=== PATIENT | male | born 1930 | race Hispanic/Latino ===

== ENCOUNTER 2017-03-26 14:31 | Inpatient (IN) | payer MEDICARE, OTHER ==
[2017-03-26 15:01] VITALS: BMI 30.7
--- NOTE | 2017-03-26 19:43 | CP.PCM.HP ---
History of Present Illness - History of Present Illness History of Present Illness: 87 y/o male with PMH Afib, HTN, Non Hodgkin Lymphoma, bilateral hearing impairment , LLE DVT was visiting from [place] to [place] where he suddenly fell down in the hotel room , developed slurred speech, RLE weakness and decreased sensation . Patient was admitted at an acute care hospital in [place] and was diagnosed with acute left MCA stroke and now transferred to acute rehab for physical therapy since his daughter lives in [place]. Patient feeling well , denies any CP SOB, urinary sx , abdopminal pain or changes in bowel movements. He has right facial droop, right side weakness and some slurred speech . 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[employer] ROS ; All other system review negative except above Code status ; Full Present on Admission - Present on Admission Any Indicators Present on Admission: Yes History of DVT/PE: Yes History of Uncontrolled Diabetes: No Urinary Catheter: No Decubitus Ulcer Present: No Review of Systems - Review of Systems All systems: reviewed and no additional remarkable complaints except Past Patient History - Infectious Disease Hx of Infectious Diseases: None - Tetanus Immunizations Tetanus Immunization: Unknown - Past Medical History & Family History Past Medical History?: Yes Past Family History: Reviewed and not pertinent - Past Social History Smoking Status: Never Smoked Chewing Tobacco Use: No Cigar Use: No Alcohol: Social Drugs: Denies Home Situation {Lives}: With Family Domestic Violence: Negative Meds Allergies/Adverse Reactions: Allergies Allergy/AdvReac Type Severity Reaction Status Date / Time latex Allergy Intermediate REDNESS Verified 03/26/17 19:13 Physical Exam - Constitutional Appears: Well, Non-toxic, No Acute Distress - Head Exam Head Exam: ATRAUMATIC, NORMAL INSPECTION, NORMOCEPHALIC - Eye Exam Eye Exam: EOMI, Normal appearance, PERRL Pupil Exam: NORMAL ACCOMODATION - ENT Exam ENT Exam: Mucous Membranes Moist, Normal Exam - Neck Exam Neck exam: Positive for: Full Rom, Normal Inspection - Respiratory Exam Respiratory Exam: Clear to Auscultation Bilateral, NORMAL BREATHING PATTERN. absent: Rales, Rhonchi, Wheezes - Cardiovascular Exam Cardiovascular Exam: Irregular Rhythm, +S1, +S2. absent: JVD - GI/Abdominal Exam GI & Abdominal Exam: Normal Bowel Sounds, Soft. absent: Distended, Guarding, Rebound, Tenderness - Rectal Exam Rectal Exam: Deferred - Extremities Exam Extremities exam: Positive for: normal capillary refill, normal inspection, pedal pulses present. Negative for: calf tenderness, pedal edema - Back Exam Back exam: NORMAL INSPECTION - Neurological Exam Neurological exam: Alert Additional comments: right facial droop right side weakness slurred speech - Psychiatric Exam Psychiatric exam: Normal Affect, Normal Mood - Skin Skin Exam: Dry, Intact, Normal Color, Warm Assessment & Plan - Assessment and Plan (Free Text) Assessment: 87 y/o male with PMH Afib, HTN, Non Hodgkin Lymphoma, bilateral hearing impairment , LLE DVT was visiting from [place] to [place] where he suddenly fell down in the hotel room , developed slurred speech, RLE weakness and decreased sensation . Patient was admitted at an acute care hospital in [place] and was diagnosed with acute left MCA stroke and now transferred to acute rehab for physical therapy since his daughter lives in [place]. Patient feeling well , denies any CP SOB, urinary sx , abdopminal pain or changes in bowel movements. He has right facial droop, right side weakness and some slurred speech . 1. Acute Left MCA stroke Admit patient to acute rehab for PT Physiatry consult with Dr. Carey PT/OT/ speech consult resume [facility] , Statin Consider d/c ASA due to increased risk for bleed ? Will call Neuro to consult about anticoagulation recommendations 2.Afib On atenolol and Flecainide Continue [facility] (Will discuss with neuro about dose reduction due to his age ) 3. History LLE DVT on eliquist 4. HTN Resume home meds, Atenolol, Lisinopril 5. Bilateral hearing impairment 6. BPH on Flomax 7. DVt prophylaxis on [facility]
[2017-03-27 07:12] LABS: BASO % 0.3 % (0.0-2.0); EOS # 0.2 K/uL (0.0-0.7); EOS % 2.8 % (0.0-4.0); HEMATOCRIT 39.9 % (35.0-51.0); LYMPH # 0.5 K/uL (1.0-4.3); LYMPH % 6.2 % (20.0-40.0); MEAN CELL VOLUME 87.4 fl (80.0-94.0); MEAN CORPUSCULAR HEMOGLOBIN 29.5 pg (27.0-31.0); MEAN CORPUSCULAR HGB CONC 33.7 g/dL (33.0-37.0); MEAN PLATELET VOLUME 8.1 fl (7.2-11.7); MONO # 0.9 K/uL (0.0-0.8); MONO % 12.4 % (0.0-10.0); NEUT # 5.7 K/uL (1.8-7.0); NEUT % 78.3 % (50.0-75.0); PLATELET COUNT 209 K/uL (130-400); RED CELL DISTRIBUTION WIDTH 14.2 % (11.5-14.5); WHITE BLOOD COUNT 7.3 K/uL (4.8-10.8)
[2017-03-27 07:18] LABS: ALKALINE PHOSPHATASE 52 U/L (38-126); ALT/SGPT 32 U/L (21-72); AST/SGOT 26 U/L (17-59); BILIRUBIN,TOTAL 1.1 mg/dl (0.2-1.3); BLOOD UREA NITROGEN 16 mg/dl (9-20); CALCIUM 8.7 mg/dL (8.4-10.2); CARBON DIOXIDE 29 mmol/L (22-30); CHLORIDE 103 mmol/L (98-107); GFR AFRICAN-AMERICAN > 60; GLUCOSE,RANDOM 103 mg/dL (75-110); POTASSIUM 4.7 MMOL/L (3.6-5.0); SODIUM 139 mmol/l (132-148); TOTAL PROTEIN 6.6 G/DL (6.3-8.2)
[2017-03-27] MEDS: Multivitamin With Minerals Tab PO SCH (08:59)
[2017-03-27] MEDS: Calcium-Vit D 500 mg-200 Units Tab UD PO SCH (08:59)
[2017-03-27] MEDS: Pantoprazole 40 mg EC Tab PO SCH (08:59)
[2017-03-27 10:57] LABS: EOSINOPHIL 3 % (0-7); LARGE PLATELETS PRESENT; NEUTROPHIL 80 % (42-75); TOTAL CELLS COUNTED 100
[2017-03-27 10:58] LABS: GIANT PLATELETS PRESENT
[2017-03-27] MEDS: FLECAINIDE 100 MG PO SCH ×2 (12:00→21:16)
--- NOTE | 2017-03-27 12:50 | CP.PCM.PN ---
Subjective - Date & Time of Evaluation Date of Evaluation: 03/27/17 Time of Evaluation: 10:30 - Subjective Subjective: Patient seen and examined. Sitting in chair in NAD. Feeling a little upset because can not take care of self and keeps spilling hi sfood.Hemodynamically stable, afebrile No acute issues overnight participated with PT Objective - Vital Signs/Intake and Output Vital Signs (last 24 hours): Temp Pulse Resp BP Pulse Ox 98.1 F 75 20 132/70 96 03/27/17 08:05 03/27/17 11:36 03/27/17 08:05 03/27/17 09:13 03/27/17 11:36 - Medications Medications: Current Medications Acetaminophen (Tylenol 325mg Tab) 650 mg PO Q6 PRN PRN Reason: Pain, moderate (4-7) Acetaminophen (Tylenol 325mg Tab) 650 mg PO Q4 PRN PRN Reason: Pain, severe (8-10) Last Admin: 03/26/17 22:10 Dose: 650 mg Apixaban (Eliquis) 5 mg PO BID [facility] PRN Reason: Protocol Last Admin: 03/27/17 08:59 Dose: 5 mg Aspirin (Aspirin Chewable) 81 mg PO DAILY [facility] Last Admin: 03/27/17 08:58 Dose: 81 mg Atenolol (Tenormin) 50 mg PO DAILY [facility] Last Admin: 03/27/17 09:13 Dose: 50 mg Atorvastatin Calcium (Lipitor) 80 mg PO HS [facility] Last Admin: 03/26/17 21:53 Dose: 80 mg Calcium/Vitamin D (Oyster Shell Calcium/Vitamin D 500 Mg-200 Iu) 1 tab PO DAILY [facility] Last Admin: 03/27/17 08:59 Dose: 1 tab Docusate Sodium (Colace) 100 mg PO BID [facility] Last Admin: 03/27/17 08:59 Dose: 100 mg Finasteride (Proscar) 5 mg PO DAILY [facility] Last Admin: 03/27/17 08:58 Dose: 5 mg Home Med (Flecainide [Tambocor]) 100 mg PO Q12 [facility] Lisinopril (Zestril) 10 mg PO DAILY [facility] Multivitamins/Minerals (Therapeutic-M Tab) 1 tab PO DAILY [facility] Last Admin: 03/27/17 08:59 Dose: 1 tab Pantoprazole Sodium (Protonix Ec Tab) 40 mg PO DAILY [facility] Last Admin: 03/27/17 08:59 Dose: 40 mg Tamsulosin HCl (Flomax) 0.8 mg PO HS [facility] Last Admin: 03/26/17 21:54 Dose: 0.8 mg - Labs Labs: 03/27/17 06:40 03/27/17 06:40 - Constitutional Appears: Non-toxic, No Acute Distress - Head Exam Head Exam: ATRAUMATIC, NORMAL INSPECTION, NORMOCEPHALIC - Eye Exam Eye Exam: EOMI, Normal appearance, PERRL Pupil Exam: NORMAL ACCOMODATION - ENT Exam ENT Exam: Mucous Membranes Moist, Normal Exam - Neck Exam Neck Exam: Full ROM, Normal Inspection - Respiratory Exam Respiratory Exam: Clear to Ausculation Bilateral, NORMAL BREATHING PATTERN. absent: Rales, Rhonchi, Wheezes - Cardiovascular Exam Cardiovascular Exam: Irregular Rhythm. absent: JVD - GI/Abdominal Exam GI & Abdominal Exam: Soft, Normal Bowel Sounds. absent: Distended, Guarding, Tenderness, Rebound - Rectal Exam Rectal Exam: Deferred - Extremities Exam Extremities Exam: Full ROM, Normal Capillary Refill, Normal Inspection. absent : Pedal Edema - Back Exam Back Exam: NORMAL INSPECTION - Neurological Exam Neurological Exam: Alert, Awake Additional comments: right facial droop expressive aphasia right side weakness - Psychiatric Exam Psychiatric exam: Flat Affect - Skin Skin Exam: Dry, Warm Assessment and Plan - Assessment and Plan (Free Text) Assessment: 87 y/o male with PMH Afib, HTN, Non Hodgkin Lymphoma, bilateral hearing impairment , LLE DVT was visiting from [place] to [place] where he suddenly fell down in the hotel room , developed slurred speech, RLE weakness and decreased sensation . Patient was admitted at an acute care hospital in [place] and was diagnosed with acute left MCA stroke and now transferred to acute rehab for physical therapy since his daughter lives in [place]. Patient feeling well , denies any CP SOB, urinary sx , abdopminal pain or changes in bowel movements. He has right facial droop, right side weakness and some slurred speech . 1. Acute Left MCA stroke Physiatry consult with Dr. Cherry niño PT/OT/ speech consult on eliquist , Statin Consider d/c ASA due to increased risk for bleed ? called Neuro to consult about anticoagulation recommendations 2.Afib On atenolol Flecainide not formulary in hospital Will ask family to bring in home med Continue Eliquist (Will discuss with neuro about dose reduction due to his age ) 3. History LLE DVT on eliquist 4. HTN Continue Atenolol, Lisinopril 5. Bilateral hearing impairment 6. BPH on Flomax 7. DVt prophylaxis on Eliquist
--- NOTE | 2017-03-27 15:07 | PCM.OPOC ---
Physiatry Overall Plan of Care - Overall Plan of Care Estimated Length of Stay in Weeks: 3 Rehab Impairment: Mobility, Gait, Cognition, Speech, Balance, Coordination Etiologic Diagnosis: Cerebrovascular Accident - Anticipated Interventions Physical Therapy:: Yes Occupational Therapy:: Yes Speech Therapy:: Yes Recreational Therapy:: Yes Other Anticipated Intervention:: Yes - Therapy Goals Bed Mobility: Independent Ambulation: Supervision Functional Positional Changes:: Independent - Discharge Plan Identification of Barriers to Discharge: Home Situation Discharge Destination: Home
--- NOTE | 2017-03-27 15:09 | CP.PCM.PN ---
Subjective - Date & Time of Evaluation Date of Evaluation: 03/27/17 Time of Evaluation: 13:30 - Subjective Subjective: no acute complaints at present Objective - Vital Signs/Intake and Output Vital Signs (last 24 hours): Temp Pulse Resp BP Pulse Ox 98.1 F 75 20 132/70 96 03/27/17 08:05 03/27/17 11:36 03/27/17 08:05 03/27/17 09:13 03/27/17 11:36 - Medications Medications: Current Medications Acetaminophen (Tylenol 325mg Tab) 650 mg PO Q6 PRN PRN Reason: Pain, moderate (4-7) Acetaminophen (Tylenol 325mg Tab) 650 mg PO Q4 PRN PRN Reason: Pain, severe (8-10) Last Admin: 03/26/17 22:10 Dose: 650 mg Apixaban (Eliquis) 5 mg PO BID [facility] PRN Reason: Protocol Last Admin: 03/27/17 08:59 Dose: 5 mg Aspirin (Aspirin Chewable) 81 mg PO DAILY [facility] Last Admin: 03/27/17 08:58 Dose: 81 mg Atenolol (Tenormin) 50 mg PO DAILY [facility] Last Admin: 03/27/17 09:13 Dose: 50 mg Atorvastatin Calcium (Lipitor) 80 mg PO HS [facility] Last Admin: 03/26/17 21:53 Dose: 80 mg Calcium/Vitamin D (Oyster Shell Calcium/Vitamin D 500 Mg-200 Iu) 1 tab PO DAILY [facility] Last Admin: 03/27/17 08:59 Dose: 1 tab Docusate Sodium (Colace) 100 mg PO BID [facility] Last Admin: 03/27/17 08:59 Dose: 100 mg Finasteride (Proscar) 5 mg PO DAILY [facility] Last Admin: 03/27/17 08:58 Dose: 5 mg Home Med (Flecainide [Tambocor]) 100 mg PO Q12 [facility] Lisinopril (Zestril) 10 mg PO DAILY [facility] Multivitamins/Minerals (Therapeutic-M Tab) 1 tab PO DAILY [facility] Last Admin: 03/27/17 08:59 Dose: 1 tab Pantoprazole Sodium (Protonix Ec Tab) 40 mg PO DAILY [facility] Last Admin: 03/27/17 08:59 Dose: 40 mg Tamsulosin HCl (Flomax) 0.8 mg PO HS [facility] Last Admin: 03/26/17 21:54 Dose: 0.8 mg - Labs Labs: 03/27/17 06:40 03/27/17 06:40 - Head Exam Head Exam: ATRAUMATIC, NORMAL INSPECTION, NORMOCEPHALIC - Eye Exam Eye Exam: EOMI, Normal appearance, PERRL Pupil Exam: NORMAL ACCOMODATION - ENT Exam ENT Exam: Mucous Membranes Moist, Normal Exam - Neck Exam Neck Exam: Normal Inspection - Respiratory Exam Respiratory Exam: NORMAL BREATHING PATTERN - Cardiovascular Exam Cardiovascular Exam: REGULAR RHYTHM - GI/Abdominal Exam GI & Abdominal Exam: Soft, Normal Bowel Sounds - Rectal Exam Rectal Exam: NORMAL INSPECTION - Exam External exam: NORMAL EXTERNAL EXAM - Extremities Exam Extremities Exam: Normal Capillary Refill, Normal Inspection - Back Exam Back Exam: NORMAL INSPECTION - Neurological Exam Neurological Exam: Alert, Awake Neuro motor strength exam: Left Upper Extremity: 3, Right Upper Extremity: 3, Left Lower Extremity: 3, Right Lower Extremity: 3 - Psychiatric Exam Psychiatric exam: Normal Affect, Normal Mood - Skin Skin Exam: Dry, Intact Assessment and Plan - Assessment and Plan (Free Text) Assessment: CVa, plan for PT, Ot rec and speech Video swallow, vital stim overall plan of care
--- NOTE | 2017-03-27 15:21 | CP.PCM.CON ---
History of Present Illness - History of Present Illness History of Present Illness: colleen is a87 year old male admitted for acute rehab status post fall in a hotel, probelm with slurred speech and right arm and right leg weakness Review of Systems - Neurological Neurological: Abnormal Gait, Confusion, Numbness, Focal Weakness, Lack of Coordination, Vertigo, Weakness Past Patient History - Infectious Disease Hx of Infectious Diseases: None - Tetanus Immunizations Tetanus Immunization: Unknown - Past Medical History & Family History Past Medical History?: Yes - Past Social History Smoking Status: Never Smoked - CARDIAC Hx Cardiac Disorders: Yes Hx Hypertension: Yes - PULMONARY Hx Respiratory Disorders: No - NEUROLOGICAL Hx Neurological Disorder: Yes HX Cerebrovascular Accident: Yes - HEENT Hx Deafness: Yes (with hearing aid to both ears) Other/Comment: wears glasses - RENAL Hx Chronic Kidney Disease: No - ENDOCRINE/METABOLIC Hx Endocrine Disorders: No - HEMATOLOGICAL/ONCOLOGICAL Hx Blood Disorders: No Hx AIDS: No Hx Human Immunodeficiency Virus (HIV): No - INTEGUMENTARY Hx Dermatological Problems: No - MUSCULOSKELETAL/RHEUMATOLOGICAL Hx Back Pain: Yes Hx Falls: Yes - GASTROINTESTINAL Hx Gastrointestinal Disorders: No - GENITOURINARY/GYNECOLOGICAL Hx Genitourinary Disorders: Yes Hx Prostate Problems: Yes (BPH) - PSYCHIATRIC Hx Psychophysiologic Disorder: No Hx Substance Use: No - SURGICAL HISTORY Hx Surgeries: Yes Hx Herniorrhaphy: Yes Hx Parathyroidectomy: Yes - ANESTHESIA Hx Anesthesia: Yes Hx Anesthesia Reactions: No Meds Allergies/Adverse Reactions: Allergies Allergy/AdvReac Type Severity Reaction Status Date / Time latex Allergy Intermediate REDNESS Verified 03/26/17 19:13 - Medications Medications: Current Medications Acetaminophen (Tylenol 325mg Tab) 650 mg PO Q6 PRN PRN Reason: Pain, moderate (4-7) Acetaminophen (Tylenol 325mg Tab) 650 mg PO Q4 PRN PRN Reason: Pain, severe (8-10) Last Admin: 03/26/17 22:10 Dose: 650 mg Apixaban (Eliquis) 5 mg PO BID [facility] PRN Reason: Protocol Last Admin: 03/27/17 08:59 Dose: 5 mg Aspirin (Aspirin Chewable) 81 mg PO DAILY [facility] Last Admin: 03/27/17 08:58 Dose: 81 mg Atenolol (Tenormin) 50 mg PO DAILY [facility] Last Admin: 03/27/17 09:13 Dose: 50 mg Atorvastatin Calcium (Lipitor) 80 mg PO HS [facility] Last Admin: 03/26/17 21:53 Dose: 80 mg Calcium/Vitamin D (Oyster Shell Calcium/Vitamin D 500 Mg-200 Iu) 1 tab PO DAILY [facility] Last Admin: 03/27/17 08:59 Dose: 1 tab Docusate Sodium (Colace) 100 mg PO BID [facility] Last Admin: 03/27/17 08:59 Dose: 100 mg Finasteride (Proscar) 5 mg PO DAILY [facility] Last Admin: 03/27/17 08:58 Dose: 5 mg Home Med (Flecainide [Tambocor]) 100 mg PO Q12 [facility] Lisinopril (Zestril) 10 mg PO DAILY [facility] Multivitamins/Minerals (Therapeutic-M Tab) 1 tab PO DAILY [facility] Last Admin: 03/27/17 08:59 Dose: 1 tab Pantoprazole Sodium (Protonix Ec Tab) 40 mg PO DAILY [facility] Last Admin: 03/27/17 08:59 Dose: 40 mg Tamsulosin HCl (Flomax) 0.8 mg PO [facility] Last Admin: 03/26/17 21:54 Dose: 0.8 mg Physical Exam - Head Exam Head Exam: ATRAUMATIC, NORMAL INSPECTION, NORMOCEPHALIC - Eye Exam Eye Exam: EOMI, Normal appearance, PERRL Pupil Exam: NORMAL ACCOMODATION, PERRL - ENT Exam ENT Exam: Mucous Membranes Moist, Normal Exam - Neck Exam Neck exam: Positive for: Normal Inspection - Respiratory Exam Respiratory Exam: NORMAL BREATHING PATTERN - Cardiovascular Exam Cardiovascular Exam: REGULAR RHYTHM - GI/Abdominal Exam GI & Abdominal Exam: Normal Bowel Sounds - Rectal Exam Rectal Exam: NORMAL INSPECTION - Exam External exam: NORMAL EXTERNAL EXAM - Extremities Exam Extremities exam: Positive for: normal inspection Additional comments: right arm, righ tleg weakness muscle strenght 3/5 and slurred speech - Back Exam Back exam: NORMAL INSPECTION - Neurological Exam Neurological exam: Alert - Psychiatric Exam Psychiatric exam: Normal Affect, Normal Mood - Skin Skin Exam: Dry, Intact, Normal Color Results - Vital Signs Recent Vital Signs: Last Vital Signs Temp 98.1 F 03/27/17 08:05 Pulse 75 03/27/17 11:36 Resp 20 03/27/17 08:05 BP 132/70 03/27/17 09:13 Pulse Ox 96 03/27/17 11:36 - Labs Result Diagrams: 03/27/17 06:40 03/27/17 06:40 Labs: Laboratory Results - last 24 hr 03/27/17 03/27/17 06:40 06:40 WBC 7.3 RBC 4.57 Hgb 13.5 Hct 39.9 MCV 87.4 MCH 29.5 MCHC 33.7 RDW 14.2 Plt Count 209 MPV 8.1 Neut % (Auto) 78.3 H Lymph % (Auto) 6.2 L [place] % (Auto) 12.4 H Eos % (Auto) 2.8 Baso % (Auto) 0.3 Neut # 5.7 Lymph # 0.5 L [place] # 0.9 H Eos # 0.2 Baso # 0.0 Neutrophils % (Manual) 80 H Band Neutrophils % 1 Lymphocytes % (Manual) 5 L Monocytes % (Manual) 11 H Eosinophils % (Manual) 3 Platelet Estimate Normal Large Platelets Present Giant Platelets Present Anisocytosis (manual) Slight Sodium 139 Potassium 4.7 Chloride 103 Carbon Dioxide 29 Anion Gap 12 BUN 16 Creatinine 0.9 Est GFR ( Amer) > 60 Est GFR (Non-Af Amer) > 60 Random Glucose 103 Calcium 8.7 Total Bilirubin 1.1 AST 26 ALT 32 Alkaline Phosphatase 52 Total Protein 6.6 Albumin 3.3 L Globulin 3.2 Albumin/Globulin Ratio 1.0 Assessment & Plan (1) CVA (cerebral vascular accident) Assessment and Plan: other problems of at fib, bph, nonhodgkins lymphoma covering for Physical, occupational, rec and speec therapy monitor skin and bowels bladder covering for Dr. Carey Status: Acute
--- NOTE | 2017-03-27 17:41 | CARD ---
APPROVED REPORT EKG Measurement Heart [id number] <Conclusion> Sinus rhythm with 1st degree AV block Left axis deviation Abnormal ECG
--- NOTE | 2017-03-27 18:49 | CP.PCM.CON ---
History of Present Illness - History of Present Illness History of Present Illness: CONSULT DICTATED RIGHT HEMIPARESIS AND RIGHT HOMONYMOUS HEMIANOPSIA ASA 81 MG AND ELIQUIS 5 MG BID PT AND KEEP BP WITH MAP +-90-100 NEED PSG AN OP FOR HIDDEN BECKY WRIST SPLINT Past Patient History - Infectious Disease Hx of Infectious Diseases: None - Tetanus Immunizations Tetanus Immunization: Unknown - Past Medical History & Family History Past Medical History?: Yes - Past Social History Smoking Status: Never Smoked - CARDIAC Hx Cardiac Disorders: Yes Hx Hypertension: Yes - PULMONARY Hx Respiratory Disorders: No - NEUROLOGICAL Hx Neurological Disorder: Yes HX Cerebrovascular Accident: Yes - HEENT Hx Deafness: Yes (with hearing aid to both ears) Other/Comment: wears glasses - RENAL Hx Chronic Kidney Disease: No - ENDOCRINE/METABOLIC Hx Endocrine Disorders: No - HEMATOLOGICAL/ONCOLOGICAL Hx Blood Disorders: No Hx AIDS: No Hx Human Immunodeficiency Virus (HIV): No - INTEGUMENTARY Hx Dermatological Problems: No - MUSCULOSKELETAL/RHEUMATOLOGICAL Hx Back Pain: Yes Hx Falls: Yes - GASTROINTESTINAL Hx Gastrointestinal Disorders: No - GENITOURINARY/GYNECOLOGICAL Hx Genitourinary Disorders: Yes Hx Prostate Problems: Yes (BPH) - PSYCHIATRIC Hx Psychophysiologic Disorder: No Hx Substance Use: No - SURGICAL HISTORY Hx Surgeries: Yes Hx Herniorrhaphy: Yes Hx Parathyroidectomy: Yes - ANESTHESIA Hx Anesthesia: Yes Hx Anesthesia Reactions: No Meds Allergies/Adverse Reactions: Allergies Allergy/AdvReac Type Severity Reaction Status Date / Time latex Allergy Intermediate REDNESS Verified 03/26/17 19:13 - Medications Medications: Current Medications Acetaminophen (Tylenol 325mg Tab) 650 mg PO Q6 PRN PRN Reason: Pain, moderate (4-7) Acetaminophen (Tylenol 325mg Tab) 650 mg PO Q4 PRN PRN Reason: Pain, severe (8-10) Last Admin: 03/26/17 22:10 Dose: 650 mg Apixaban (Eliquis) 5 mg PO BID [facility] PRN Reason: Protocol Last Admin: 03/27/17 17:55 Dose: 5 mg Aspirin (Aspirin Chewable) 81 mg PO DAILY [facility] Last Admin: 03/27/17 08:58 Dose: 81 mg Atenolol (Tenormin) 50 mg PO DAILY [facility] Last Admin: 03/27/17 09:13 Dose: 50 mg Atorvastatin Calcium (Lipitor) 80 mg PO HS [facility] Last Admin: 03/26/17 21:53 Dose: 80 mg Calcium/Vitamin D (Oyster Shell Calcium/Vitamin D 500 Mg-200 Iu) 1 tab PO DAILY [facility] Last Admin: 03/27/17 08:59 Dose: 1 tab Docusate Sodium (Colace) 100 mg PO BID [facility] Last Admin: 03/27/17 17:55 Dose: 100 mg Finasteride (Proscar) 5 mg PO DAILY [facility] Last Admin: 03/27/17 08:58 Dose: 5 mg Home Med (Flecainide [Tambocor]) 100 mg PO Q12 [facility] Last Admin: 03/27/17 12:00 Dose: 100 mg Lisinopril (Zestril) 10 mg PO DAILY [facility] Last Admin: 03/27/17 10:00 Dose: 10 mg Multivitamins/Minerals (Therapeutic-M Tab) 1 tab PO DAILY [facility] Last Admin: 03/27/17 08:59 Dose: 1 tab Pantoprazole Sodium (Protonix Ec Tab) 40 mg PO DAILY [facility] Last Admin: 03/27/17 08:59 Dose: 40 mg Tamsulosin HCl (Flomax) 0.8 mg PO [facility] Last Admin: 03/26/17 21:54 Dose: 0.8 mg Results - Vital Signs Recent Vital Signs: Last Vital Signs Temp 98.1 F 03/27/17 08:05 Pulse 75 03/27/17 11:36 Resp 20 03/27/17 08:05 BP 120/70 03/27/17 10:00 Pulse Ox 96 03/27/17 11:36 - Labs Result Diagrams: 03/27/17 06:40 03/27/17 06:40 Labs: Laboratory Results - last 24 hr 03/27/17 03/27/17 06:40 06:40 WBC 7.3 RBC 4.57 Hgb 13.5 Hct 39.9 MCV 87.4 MCH 29.5 MCHC 33.7 RDW 14.2 Plt Count 209 MPV 8.1 Neut % (Auto) 78.3 H Lymph % (Auto) 6.2 L [place] % (Auto) 12.4 H Eos % (Auto) 2.8 Baso % (Auto) 0.3 Neut # 5.7 Lymph # 0.5 L [place] # 0.9 H Eos # 0.2 Baso # 0.0 Neutrophils % (Manual) 80 H Band Neutrophils % 1 Lymphocytes % (Manual) 5 L Monocytes % (Manual) 11 H Eosinophils % (Manual) 3 Platelet Estimate Normal Large Platelets Present Giant Platelets Present Anisocytosis (manual) Slight Sodium 139 Potassium 4.7 Chloride 103 Carbon Dioxide 29 Anion Gap 12 BUN 16 Creatinine 0.9 Est GFR ( Amer) > 60 Est GFR (Non-Af Amer) > 60 Random Glucose 103 Calcium 8.7 Total Bilirubin 1.1 AST 26 ALT 32 Alkaline Phosphatase 52 Total Protein 6.6 Albumin 3.3 L Globulin 3.2 Albumin/Globulin Ratio 1.0
[2017-03-28] MEDS: Calcium-Vit D 500 mg-200 Units Tab UD PO SCH (08:34)
[2017-03-28] MEDS: Multivitamin With Minerals Tab PO SCH (08:34)
[2017-03-28] MEDS: FLECAINIDE 100 MG PO SCH ×3 (08:39→21:08)
[2017-03-28] MEDS: Pantoprazole 40 mg EC Tab PO SCH (08:41)
[2017-03-29] MEDS: Multivitamin With Minerals Tab PO SCH (09:03)
[2017-03-29] MEDS: FLECAINIDE 100 MG PO SCH ×2 (09:03→21:59)
[2017-03-29] MEDS: Calcium-Vit D 500 mg-200 Units Tab UD PO SCH (09:08)
[2017-03-29] MEDS: Pantoprazole 40 mg EC Tab PO SCH (09:09)
[2017-03-30] MEDS: Pantoprazole 40 mg EC Tab PO SCH (08:30)
[2017-03-30] MEDS: Multivitamin With Minerals Tab PO SCH (08:30)
[2017-03-30] MEDS: Calcium-Vit D 500 mg-200 Units Tab UD PO SCH (08:31)
[2017-03-30] MEDS: FLECAINIDE 100 MG PO SCH ×2 (08:32→21:16)
--- NOTE | 2017-03-30 08:39 | PN ---
DATE: PHYSIATRY PROGRESS NOTE SUBJECTIVE: The patient is alert, able to follow commands. The patient with left-sided weakness, admitted for acute inpatient rehab program. PHYSICAL EXAMINATION: VITAL SIGNS: Stable. NECK: Supple. CHEST: Symmetrical. HEART: Sounds S1 and S2. ABDOMEN: Areas benign. EXTREMITIES: No clubbing, cyanosis, or edema. IMPRESSION: Left-sided weakness secondary to cerebrovascular accident, history of non-Hodgkin's lymphoma, deep venous thrombosis, benign prostatic hypertrophy, atrial fibrillation, hypertension. Patient with physical, occupational, recreational and speech therapy program. Monitor the consistency of the food for video swallowing test. Continue acute rehab. Davis MD Lenore
--- NOTE | 2017-03-30 08:44 | CON ---
DATE: UNIT NUMBER: [id number] REASON FOR THE CONSULTATION: Post stroke. CHIEF COMPLAINT: The patient was brought in to the long-term care facility following the stroke that he had in [place]. From neurological point of view, I was called in to evaluate him for further management. HISTORY OF PRESENT ILLNESS: The patient is an 87-year-old right-handed male, in the usual state of health while he was in [facility], suddenly he fell on his right side, hit his head. During the workup, found to have right-sided stroke with left MCA stroke. Patient is known to have atrial fibrillation and medication is being adjusted, and had workup and being transferred to here for acute rehabilitation. At present, he denies headache, no visual or bulbar dysfunction. Complaining of lower back pain, mild weakness on his right side. He tends to get out of the bed and walk by himself. No history of loss of consciousness. No history of involuntary movements. PAST MEDICAL HISTORY: Atrial fibrillation, status post cardioversion, hypertension, non-Hodgkin lymphoma; bilateral hearing impairment, on a hearing aid; left lower extremity DVT. MEDICATIONS: Eliquis, atorvastatin, lisinopril, tamsulosin, aspirin, atenolol, finasteride, folic acid, multivitamin, calcium and vitamin D. PAST SURGICAL HISTORY: Post parathyroidectomy and hernia repair. PERSONAL HISTORY: Denies smoking. Lives with his , and social alcohol use. ALLERGIES: LATEX. REVIEW OF SYSTEMS: A 12-point system is being reviewed. From neuro, right-sided weakness. PHYSICAL EXAMINATION: VITAL SIGNS: Blood pressure 125/55, mean arterial pressure of 86, respiratory rate is 16, temperature afebrile. NECK: Supple. No carotid bruit. HEART: NSR. CHEST: Fair air entry. EXTREMITIES: No edema in legs. Right arm wrist drop with mild right leg externally rotated. NEUROLOGICAL: Cranial nerve examination: Visual field, right homonymous hemianopsia. Extraocular movement normal. Pupils reactive to light. No nystagmus. Flattening of the right nasolabial fold. Hearing seems to be affected on both sides. Tongue is midline. Good gag. Motor examination: Outstretched hands with eyes closed, mild weakness on the right side, 4/5, with a wrist drop. Right leg also seems to be affected with the weakness of 5-/5. Sensory examination: No cortical sensory loss. Responded to pain symmetrically on both sides. Coordination: Snhakx-[id number]-[id number] test, dysmetria proportionate to his weakness. Deep tendon reflexes absent. Plantars are upgoing on his right side, left side was downgoing. Gait is deferred at this time. DIAGNOSTIC DATA: MRI of the brain, which was done at previous hospital, showed left MCA infarct. CONCLUSION: The patient has been presenting with left embolic middle cerebral artery stroke, presenting with right homonymous hemianopsia, right upper motor neuron facial nerve dysfunction with right hemiparesis. RECOMMENDATIONS: 1. Continue low-dose aspirin with Eliquis. 2. Wrist splint. 3. Physical therapy as he has been getting. 4. Continue DVT prophylaxis. 5. Keep the blood pressure, mean arterial pressure around 90 to 100. 6. No other workup is needed from neurological point of view. Tylor Kenney MD MTDD
--- NOTE | 2017-03-30 12:57 | CP.PCM.PN ---
Subjective - Date & Time of Evaluation Date of Evaluation: 03/30/17 Time of Evaluation: 11:00 - Subjective Subjective: Patient was seen and examined at bedside. Continues to have right sided hemiparesis and right sided homonymous hemianopsia. Has no complaints today. Resting in bed. Cooperating well with ST/OT/PT. No acute events as per nursing staff. Objective - Vital Signs/Intake and Output Vital Signs (last 24 hours): Temp Pulse Resp BP Pulse Ox 97.9 F 61 20 155/64 H 98 03/30/17 07:44 03/30/17 08:34 03/30/17 07:44 03/30/17 08:34 03/30/17 07:44 - Medications Medications: Current Medications Acetaminophen (Tylenol 325mg Tab) 650 mg PO Q6 PRN PRN Reason: Pain, moderate (4-7) Last Admin: 03/29/17 09:13 Dose: 650 mg Acetaminophen (Tylenol 325mg Tab) 650 mg PO Q4 PRN PRN Reason: Pain, severe (8-10) Last Admin: 03/26/17 22:10 Dose: 650 mg Apixaban (Eliquis) 5 mg PO BID [facility] PRN Reason: Protocol Last Admin: 03/30/17 08:32 Dose: 5 mg Aspirin (Aspirin Chewable) 81 mg PO DAILY [facility] Last Admin: 03/30/17 08:32 Dose: 81 mg Atenolol (Tenormin) 50 mg PO DAILY [facility] Last Admin: 03/30/17 08:34 Dose: 50 mg Atorvastatin Calcium (Lipitor) 80 mg PO HS [facility] Last Admin: 03/29/17 22:00 Dose: 80 mg Calcium/Vitamin D (Oyster Shell Calcium/Vitamin D 500 Mg-200 Iu) 1 tab PO DAILY [facility] Last Admin: 03/30/17 08:31 Dose: 1 tab Docusate Sodium (Colace) 100 mg PO BID [facility] Last Admin: 03/30/17 08:31 Dose: 100 mg Finasteride (Proscar) 5 mg PO DAILY [facility] Last Admin: 03/30/17 08:30 Dose: 5 mg Home Med (Flecainide [Tambocor]) 100 mg PO Q12 [facility] Last Admin: 03/30/17 08:32 Dose: 100 mg Lisinopril (Zestril) 10 mg PO DAILY [facility] Last Admin: 03/30/17 08:31 Dose: 10 mg Multivitamins/Minerals (Therapeutic-M Tab) 1 tab PO DAILY [facility] Last Admin: 03/30/17 08:30 Dose: 1 tab Pantoprazole Sodium (Protonix Ec Tab) 40 mg PO DAILY [facility] Last Admin: 03/30/17 08:30 Dose: 40 mg Tamsulosin HCl (Flomax) 0.8 mg PO HS [facility] Last Admin: 03/29/17 21:59 Dose: 0.8 mg - Labs Labs: 03/27/17 06:40 03/27/17 06:40 - Additional Findings Additional findings: Physical exam: Constitutional- cooperative, awake, alert. Head- NCAT, PERRL Eye- PERRL, normal accommodation ENT- normal exam, MMM. Neck- normal inspection, supple, no JVD Respiratory- CTAB, no wheezes rales rhonchi Cardiovascular- RRR, +S1, +S2 no MRG GI/Abdominal- normal bowel sounds, soft, no mass, no hsm Skin- warm, dry Extremities Exam- normal capillary refill, normal inspection Neurological Exam- Right sided hemiparesis. Right sided homonymous hemianopsia. Alert, coherent Psych- normal mood, normal affect Assessment and Plan - Assessment and Plan (Free Text) Plan: Assessment: 87 y/o male with PMH Afib, HTN, Non Hodgkin Lymphoma, bilateral hearing impairment , LLE DVT was visiting from [place] to [place] where he suddenly fell down in the hotel room , developed slurred speech, RLE weakness and decreased sensation . Patient was admitted at an acute care hospital in [place] and was diagnosed with acute left MCA stroke and now transferred to acute rehab for physical therapy since his daughter lives in [place]. Patient feeling well , denies any CP SOB, urinary sx , abdopminal pain or changes in bowel movements. He has right facial droop, right side weakness and some slurred speech . 1. Acute Left MCA stroke Physiatry consult with Dr. Cherry niño PT/OT/ speech consult Continue Eliquis, Statin Continue ASA 81 mg po daily as per neurology Patient to need outpatient polysomnogram as an outpatient for possible BECKY Wrist splint 2. Atrial fibrillation, controlled Atenolol 50 mg po daily Flecainide 100 mg po q 12 hours Continue Eliquis 3. History LLE DVT on eliquis 4. HTN Continue Atenolol, Lisinopril 5. Bilateral hearing impairment 6. BPH on Flomax 7. DVt prophylaxis on Eliquis 8. GERD - Protonix 40 mg po daily
[2017-03-30] MEDS ORDERED: Barium Sulfate Susp 0.1% w/v, 0.1% w/w 450 mL Bottle PO ONE (13:09)
--- NOTE | 2017-03-30 14:37 | CP.PCM.PN ---
Subjective - Date & Time of Evaluation Date of Evaluation: 03/30/17 Time of Evaluation: 12:00 - Subjective Subjective: no acute complaints of any pain Objective - Vital Signs/Intake and Output Vital Signs (last 24 hours): Temp Pulse Resp BP Pulse Ox 97.9 F 61 20 155/64 H 98 03/30/17 07:44 03/30/17 08:34 03/30/17 07:44 03/30/17 08:34 03/30/17 07:44 - Medications Medications: Current Medications Acetaminophen (Tylenol 325mg Tab) 650 mg PO Q6 PRN PRN Reason: Pain, moderate (4-7) Last Admin: 03/29/17 09:13 Dose: 650 mg Acetaminophen (Tylenol 325mg Tab) 650 mg PO Q4 PRN PRN Reason: Pain, severe (8-10) Last Admin: 03/26/17 22:10 Dose: 650 mg Apixaban (Eliquis) 5 mg PO BID [facility] PRN Reason: Protocol Last Admin: 03/30/17 08:32 Dose: 5 mg Aspirin (Aspirin Chewable) 81 mg PO DAILY [facility] Last Admin: 03/30/17 08:32 Dose: 81 mg Atenolol (Tenormin) 50 mg PO DAILY [facility] Last Admin: 03/30/17 08:34 Dose: 50 mg Atorvastatin Calcium (Lipitor) 80 mg PO HS [facility] Last Admin: 03/29/17 22:00 Dose: 80 mg Calcium/Vitamin D (Oyster Shell Calcium/Vitamin D 500 Mg-200 Iu) 1 tab PO DAILY [facility] Last Admin: 03/30/17 08:31 Dose: 1 tab Docusate Sodium (Colace) 100 mg PO BID [facility] Last Admin: 03/30/17 08:31 Dose: 100 mg Finasteride (Proscar) 5 mg PO DAILY [facility] Last Admin: 03/30/17 08:30 Dose: 5 mg Home Med (Flecainide [Tambocor]) 100 mg PO Q12 [facility] Last Admin: 03/30/17 08:32 Dose: 100 mg Lisinopril (Zestril) 10 mg PO DAILY [facility] Last Admin: 03/30/17 08:31 Dose: 10 mg Multivitamins/Minerals (Therapeutic-M Tab) 1 tab PO DAILY [facility] Last Admin: 03/30/17 08:30 Dose: 1 tab Pantoprazole Sodium (Protonix Ec Tab) 40 mg PO DAILY [facility] Last Admin: 03/30/17 08:30 Dose: 40 mg Tamsulosin HCl (Flomax) 0.8 mg PO HS [facility] Last Admin: 03/29/17 21:59 Dose: 0.8 mg - Labs Labs: 03/27/17 06:40 03/27/17 06:40 - Head Exam Head Exam: ATRAUMATIC, NORMAL INSPECTION, NORMOCEPHALIC - Eye Exam Eye Exam: EOMI, Normal appearance, PERRL Pupil Exam: NORMAL ACCOMODATION - ENT Exam ENT Exam: Mucous Membranes Moist, Normal Exam - Neck Exam Neck Exam: Normal Inspection - Respiratory Exam Respiratory Exam: NORMAL BREATHING PATTERN - Cardiovascular Exam Cardiovascular Exam: REGULAR RHYTHM - GI/Abdominal Exam GI & Abdominal Exam: Normal Bowel Sounds - Rectal Exam Rectal Exam: NORMAL INSPECTION - Exam External exam: NORMAL EXTERNAL EXAM - Extremities Exam Extremities Exam: Full ROM, Normal Capillary Refill, Normal Inspection - Back Exam Back Exam: NORMAL INSPECTION - Neurological Exam Neurological Exam: Alert, Awake Neuro motor strength exam: Left Upper Extremity: 3, Right Upper Extremity: 3, Left Lower Extremity: 3, Right Lower Extremity: 3 - Psychiatric Exam Psychiatric exam: Normal Affect, Normal Mood - Skin Skin Exam: Dry, Intact Assessment and Plan (1) CVA (cerebral vascular accident) Assessment & Plan: Pt, ot, rec therapy, covering for DR. Carey for team conference Status: Acute
--- NOTE | 2017-03-30 16:25 | RAD ---
PROCEDURE: Modified barium swallow study. HISTORY: COMPARISON: None available. TECHNIQUE: Under fluoroscopic guidance, barium meals of various consistency were administered to the patient by the speech pathologist. FINDINGS: Penetration without aspiration was observed during this study.This was observed primarily with thin liquids with and without chin tuck maneuver. IMPRESSION: Evidence of Penetration without aspiration observed. Please refer to the detailed report and recommendations of the speech pathologist.
[2017-03-31] MEDS: FLECAINIDE 100 MG PO SCH ×2 (08:58→21:56)
[2017-03-31] MEDS: Calcium-Vit D 500 mg-200 Units Tab UD PO SCH (08:59)
[2017-03-31] MEDS: Pantoprazole 40 mg EC Tab PO SCH (08:59)
[2017-03-31] MEDS: Multivitamin With Minerals Tab PO SCH (09:00)
[2017-04-01] MEDS: FLECAINIDE 100 MG PO SCH ×2 (08:26→21:37)
[2017-04-01] MEDS: Calcium-Vit D 500 mg-200 Units Tab UD PO SCH (08:27)
[2017-04-01] MEDS: Multivitamin With Minerals Tab PO SCH (08:27)
[2017-04-01] MEDS: Pantoprazole 40 mg EC Tab PO SCH (08:29)
--- NOTE | 2017-04-01 08:52 | PSY.TMCNF ---
Nursing - Vital Signs Vital Signs (Last 8 hours): Vital Signs 04/01/17 04/01/17 08:28 08:45 Temperature 97.7 F Pulse Rate 58 L 58 L Respiratory 22 Rate Blood Pressure 134/53 L 134/53 L O2 Sat by Pulse 99 Oximetry Pain: 0 - Medications/Other Issues Comment: Pt at moderate nutritional risk. goal: 1. Pt to consume 75-100% of meals. Follow-up due on 04/03/2017 - Bladder Management Bladder Pattern: Normal, Incontinent Voiding Method: Toilet, Urinal - Bowel Management Bowel Pattern: Normal - Goals/Time Frame Comments: Pt was seen following OT session and brought into the recreation room. Pt agreeable to visit. Pt reported that he would like to be called "Ed" throughout his stay. Pt was able to identify his leisure interests such as watching television, reading, and enjoys writing. 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 Pt reported that he lives in [place] with and traveled to [place] to visit the [employer] and then travel to daughters home in [place] for [facility]. Pt reported that his son and are currently staying in [place] at daughter's home until pt is medically stable to travel back to [place]. Pt presented with slurred speech and is hard of hearing although has B/L hearing aides. Pt would benefit from recreation therapy throughout stay on unit. Physical Therapy - Bed Mobility Bed Mobility: Verbal Cues, Minimal Assistance - Transfers Wheelchair to Mat: Verbal Cues, Minimal Assistance Sit to Stand: Verbal Cues, Minimal Assistance - Ambulation Level of Assistance: Verbal Cues, Minimal Assistance Distance (ft.): 75 Assistive Devices: Rolling Walker - Stair Negotiation Stairs: Level of Assistance: Minimal Assistance Number of Stairs: 3 Handrails: Bilateral Stairs: Assistive Devices: Left Handrail, Right Handrail - Standing Balance Static Stand: Contact Guard Assist Dynamic Stand: Minimal Assistance, Moderate Assistance - Pain Comment: Intermittent complaints of neck and back pain, pt reports these are chronic issues - Insight/Carryover Insight/Carryover: Fair - Patient/Family Education Comment: Role of OT and rehab, CVA and recovery, compensatory strategies for ADLs and ADL transfers, fall prevention. Pt requires continued reinforcement of education to ensure carryover. - Assessment/Plan Assessment: Pt is an 87 year old male s/p CVA. Pt would benefit from inpatient rehab services to address coordination, R sided inattention, ROM, strength, safety awareness, balance and posture to maximize safety and independence with ADLs and functional transfers. - Goals Timeframe: 3 weeks Goals: MOD I grooming. MOD I feeding. S with UE dressing. S LE dressing. S toileting. S toilet txfer. S bathing. S tub txfer - Provider License Number: [id number] Occupational Therapy - Arousal/Attention/Orientation Level of Consciousness: Awake, Alert, Forgetful Patient Orientation: Person, Place - ADL/IADL Self Feeding: Supervision, Verbal Cues, Set-up Help, Minimal Assistance Grooming: Verbal Cues, Set-up Help, Minimal Assistance Dressing-Upper Extremity: Maximum Assistance Dressing-Lower Extremity: Dependent - Sitting Balance Static Sitting: Contact Guard Assist Dynamic Sitting: Moderate Assistance - Transfers Wheelchair to Bed Transfers: Verbal Cues, Set-up Help, Minimal Assistance Toilet Transfers: Verbal Cues, Set-up Help, Moderate Assistance - Wheelchair Management Level of Assistance: Dependent - Upper Extremity Status Right Upper Extremity Comment: ROM WFL with exception to digits, 3+/5, impaired fine motor coordination Left Upper Extremity Comment: ROM WFL, MMT grossly 4+/5 - Pain Comment: Intermittent complaints of neck and back pain, pt reports these are chronic issues - Insight/Carryover Insight/Carryover: Fair - Patient/Family Education Comment: Role of OT and rehab, CVA and recovery, compensatory strategies for ADLs and ADL transfers, fall prevention. Pt requires continued reinforcement of education to ensure carryover. - Assessment/Plan Assessment: Pt is an 87 year old male s/p CVA. Pt would benefit from inpatient rehab services to address coordination, R sided inattention, ROM, strength, safety awareness, balance and posture to maximize safety and independence with ADLs and functional transfers. - Goals Timeframe: 3 weeks Goals: MOD I grooming. MOD I feeding. S with UE dressing. S LE dressing. S toileting. S toilet txfer. S bathing. S tub txfer - Provider Therapist: Cherelle Johnson License Number: [id number] Speech Therapy - Consult Information Patient on Program: Yes Medical Diagnosis: CVA Treatment Diagnosis: - moderate dysarthria. - mild cognitive deficits. - moderate oropharyngeal dysphagia - Assessment Memory Impairment: Mild Speech/Articulation Impairment: Moderate Dysphagia/Swallowing Impairment: Moderate Comment: finely chopped/nectar - Plan Assessment: Pt is an 87 year old male s/p CVA. Pt would benefit from inpatient rehab services to address coordination, R sided inattention, ROM, strength, safety awareness, balance and posture to maximize safety and independence with ADLs and functional transfers. - Provider Therapist: Teresa Grace License Number: [id number] Recreational Therapy - Participation Participation: Participates in Individual and/or Group Sessions - Attendance Attendance: Daily - Activities Leisure Activities: Socializing - Socialization Level of Socialization: Initiates/interacts freely with care givers and peer - Diversional Time Diversional Time: reading the newspaper, socializing - Assessment Assessment/Plan: Pt is an 87 year old male s/p CVA. Pt would benefit from inpatient rehab services to address coordination, R sided inattention, ROM, strength, safety awareness, balance and posture to maximize safety and independence with ADLs and functional transfers. - Provider Therapist: Ana Chong, PROFESSOR OF FAMILY MEDICINE #[id number] Nutrition - Current Diet Current Diet/ Supplement/ Feedings: Heart healthy diet mech altered(finely chopped) nectar thick liquids - Appetite Percent Meal Consumed: 50-74% - Assessment/Goals/Time Frame Assessment/Goals/Time Frame: Pt at moderate nutritional risk. goal: 1. Pt to consume 75-100% of meals. Follow-up due on 04/03/2017 - Provider Provider: Zabrina Head RD Case Management - Discharge Plan Discharge Plan: Home with significant other/family Rehabilitation Plan - Treatment Plan Treatment Plan: Physical Therapy, Occupational Therapy, Speech, Dietary, Patient /Family Education - Recommendation Recommendation: Physical Therapy, Occupational Therapy, Speech, Dietary, Patient /Family Education - Discharge Plan Discharge to: Home
[2017-04-01 10:41] LABS: RBC URINE 122 /hpf (0-3); URINE BILIRUBIN NEGATIVE (NEGATIVE); URINE BLOOD MODERATE (NEGATIVE); URINE COLOR YELLOW (YELLOW); URINE GLUCOSE (UA) NEG (Normal); URINE KETONE NEGATIVE (NEGATIVE); URINE LEUKOCYTE ESTERASE NEG Leu/uL (Negative); URINE PROTEIN NEGATIVE (NEGATIVE); URINE UROBILINOGEN 0.2-1.0 mg/dL (0.2-1.0); WBC URINE 5 /hpf (0-5)
--- NOTE | 2017-04-01 11:49 | PN ---
PHYSIATRY PROGRESS NOTE DATE: SUBJECTIVE: The patient is doing fine. No acute complaints at present. PHYSICAL EXAMINATION: VITAL SIGNS: Vitals are stable. NECK: Supple. CHEST: Symmetrical. HEART: Sounds S1 and S2. ABDOMEN: Abdominal area is benign. EXTREMITIES: No clubbing, cyanosis or edema. IMPRESSION: Acute cerebrovascular accident with non-Hodgkin's, deep venous thrombosis, benign prostatic hypertrophy. Status post team conference, status post discussion with the family member, regarding discharge planning. No date at present to consider vital stimulation by speech. Davis MD Lenore
--- NOTE | 2017-04-01 12:10 | CP.PCM.PN ---
Subjective - Date & Time of Evaluation Date of Evaluation: 04/01/17 Time of Evaluation: 14:30 - Subjective Subjective: Patient seen bedside. Lying in bed comfortably . Denies any pain or discomfort. Participating with PT . Hemodynamically stable, afebrile.No acute issues overnight. Objective - Vital Signs/Intake and Output Vital Signs (last 24 hours): Temp Pulse Resp BP Pulse Ox 97.7 F 58 L 22 134/53 L 99 04/01/17 08:45 04/01/17 08:45 04/01/17 08:45 04/01/17 08:45 04/01/17 08:45 - Medications Medications: Current Medications Acetaminophen (Tylenol 325mg Tab) 650 mg PO Q6 PRN PRN Reason: Pain, moderate (4-7) Last Admin: 03/31/17 17:33 Dose: 650 mg Acetaminophen (Tylenol 325mg Tab) 650 mg PO Q4 PRN PRN Reason: Pain, severe (8-10) Last Admin: 03/26/17 22:10 Dose: 650 mg Apixaban (Eliquis) 5 mg PO BID [facility] PRN Reason: Protocol Last Admin: 04/01/17 08:27 Dose: 5 mg Aspirin (Aspirin Chewable) 81 mg PO DAILY [facility] Last Admin: 04/01/17 08:28 Dose: 81 mg Atenolol (Tenormin) 50 mg PO DAILY [facility] Last Admin: 03/31/17 09:00 Dose: 50 mg Atorvastatin Calcium (Lipitor) 80 mg PO HS [facility] Last Admin: 03/31/17 21:54 Dose: 80 mg Calcium/Vitamin D (Oyster Shell Calcium/Vitamin D 500 Mg-200 Iu) 1 tab PO DAILY [facility] Last Admin: 04/01/17 08:27 Dose: 1 tab Docusate Sodium (Colace) 100 mg PO BID [facility] Last Admin: 04/01/17 08:27 Dose: 100 mg Finasteride (Proscar) 5 mg PO DAILY [facility] Last Admin: 04/01/17 08:28 Dose: 5 mg Home Med (Flecainide [Tambocor]) 100 mg PO Q12 [facility] Last Admin: 04/01/17 08:26 Dose: 100 mg Lactulose (Enulose) 20 gm PO BID PRN PRN Reason: Constipation Lisinopril (Zestril) 10 mg PO DAILY [facility] Last Admin: 04/01/17 08:28 Dose: 10 mg Multivitamins/Minerals (Therapeutic-M Tab) 1 tab PO DAILY [facility] Last Admin: 04/01/17 08:27 Dose: 1 tab Pantoprazole Sodium (Protonix Ec Tab) 40 mg PO DAILY [facility] Last Admin: 04/01/17 08:29 Dose: 40 mg Tamsulosin HCl (Flomax) 0.8 mg PO HS [facility] Last Admin: 03/31/17 21:55 Dose: 0.8 mg - Labs Labs: 03/27/17 06:40 03/27/17 06:40 - Constitutional Appears: Non-toxic, No Acute Distress - Head Exam Head Exam: ATRAUMATIC, NORMOCEPHALIC Additional comments: right facial droop - Eye Exam Eye Exam: EOMI, PERRL Pupil Exam: NORMAL ACCOMODATION - ENT Exam ENT Exam: Mucous Membranes Moist, Normal Exam - Neck Exam Neck Exam: Full ROM, Normal Inspection - Respiratory Exam Respiratory Exam: Clear to Ausculation Bilateral, NORMAL BREATHING PATTERN. absent: Rales, Rhonchi, Wheezes - Cardiovascular Exam Cardiovascular Exam: Irregular Rhythm, +S1, +S2. absent: JVD - GI/Abdominal Exam GI & Abdominal Exam: Soft, Normal Bowel Sounds. absent: Distended, Guarding, Tenderness, Rebound - Rectal Exam Rectal Exam: Deferred - Extremities Exam Extremities Exam: Full ROM, Normal Capillary Refill, Normal Inspection. absent : Calf Tenderness, Pedal Edema - Back Exam Back Exam: NORMAL INSPECTION - Neurological Exam Neurological Exam: Alert, Awake, Oriented x3 Additional comments: right facial droop slurred speech - Psychiatric Exam Psychiatric exam: Normal Affect - Skin Skin Exam: Dry, Intact, Normal Color, Warm Assessment and Plan - Assessment and Plan (Free Text) Assessment: 87 y/o male with PMH Afib, HTN, Non Hodgkin Lymphoma, bilateral hearing impairment , LLE DVT was visiting from [place] to [place] where he suddenly fell down in the hotel room , developed slurred speech, RLE weakness and decreased sensation . Patient was admitted at an acute care hospital in [place] and was diagnosed with acute left MCA stroke and now transferred to acute rehab for physical therapy since his daughter lives in [place]. He has right facial droop, right side weakness and some slurred speech . 1. Acute Left MCA stroke Physiatry consult with Dr. Carey appreciated continue PT/OT/ speech consult on Eliquis, Statin , ASA neurology input appreciated Patient to need outpatient polysomnogram as an outpatient for possible BECKY Wrist splint 2. Atrial fibrillation, controlled Atenolol 50 mg po daily Flecainide 100 mg po q 12 hours Continue Eliquis 3. History LLE DVT on eliquis 4. HTN Continue Atenolol, Lisinopril 5. Bilateral hearing impairment 6. BPH on Flomax 7. DVt prophylaxis on Eliquis 8. GERD Protonix 40 mg po daily
[2017-04-02] MEDS: Pantoprazole 40 mg EC Tab PO SCH (08:29)
[2017-04-02] MEDS: Multivitamin With Minerals Tab PO SCH (08:29)
[2017-04-02] MEDS: Calcium-Vit D 500 mg-200 Units Tab UD PO SCH (08:30)
[2017-04-02] MEDS: FLECAINIDE 100 MG PO SCH ×2 (08:31→21:25)
[2017-04-03] MEDS: FLECAINIDE 100 MG PO SCH ×2 (08:15→21:05)
[2017-04-03] MEDS: Calcium-Vit D 500 mg-200 Units Tab UD PO SCH (08:15)
[2017-04-03] MEDS: Pantoprazole 40 mg EC Tab PO SCH (08:15)
[2017-04-03] MEDS: Multivitamin With Minerals Tab PO SCH (08:16)
--- NOTE | 2017-04-03 10:41 | CP.PCM.PN ---
Subjective - Date & Time of Evaluation Date of Evaluation: 04/03/17 Time of Evaluation: 10:38 - Subjective Subjective: patient seen and examined at bedside status post acute CVA. he is participating with physical therapy well, and states he feels he is improving. He denies chest pain, shortness of breath, or any new focal neuro deficits. Patient is hemodynamically stable and in no acute distress. Objective - Vital Signs/Intake and Output Vital Signs (last 24 hours): Temp Pulse Resp BP Pulse Ox 98.1 F 66 18 120/70 96 04/03/17 08:14 04/03/17 08:16 04/03/17 08:14 04/03/17 08:16 04/03/17 08:14 Physical exam: Constitutional- cooperative, awake, alert. Head- NCAT, PERRL Eye- PERRL, normal accommodation ENT- normal exam, MMM. Neck- normal inspection, supple, no JVD Respiratory- CTAB, no wheezes rales rhonchi Cardiovascular- RRR, +S1, +S2 no MRG GI/Abdominal- normal bowel sounds, soft, no mass, no hsm Skin- warm, dry Extremities Exam- normal capillary refill, normal inspection Neurological Exam- alert, awake Psych- normal mood, normal affect - Medications Medications: Current Medications Acetaminophen (Tylenol 325mg Tab) 650 mg PO Q6 PRN PRN Reason: Pain, moderate (4-7) Last Admin: 03/31/17 17:33 Dose: 650 mg Acetaminophen (Tylenol 325mg Tab) 650 mg PO Q4 PRN PRN Reason: Pain, severe (8-10) Last Admin: 04/02/17 08:17 Dose: 650 mg Apixaban (Eliquis) 5 mg PO BID [facility] PRN Reason: Protocol Last Admin: 04/03/17 08:15 Dose: 5 mg Aspirin (Aspirin Chewable) 81 mg PO DAILY [facility] Last Admin: 04/03/17 08:15 Dose: 81 mg Atenolol (Tenormin) 50 mg PO DAILY [facility] Last Admin: 04/03/17 08:16 Dose: 50 mg Atorvastatin Calcium (Lipitor) 80 mg PO HS [facility] Last Admin: 04/02/17 21:26 Dose: 80 mg Calcium/Vitamin D (Oyster Shell Calcium/Vitamin D 500 Mg-200 Iu) 1 tab PO DAILY [facility] Last Admin: 04/03/17 08:15 Dose: 1 tab Docusate Sodium (Colace) 100 mg PO BID [facility] Last Admin: 04/03/17 08:15 Dose: 100 mg Finasteride (Proscar) 5 mg PO DAILY [facility] Last Admin: 04/03/17 08:15 Dose: 5 mg Home Med (Flecainide [Tambocor]) 100 mg PO Q12 [facility] Last Admin: 04/03/17 08:15 Dose: 100 mg Lactulose (Enulose) 20 gm PO BID PRN PRN Reason: Constipation Lisinopril (Zestril) 10 mg PO DAILY [facility] Last Admin: 04/03/17 08:16 Dose: 10 mg Multivitamins/Minerals (Therapeutic-M Tab) 1 tab PO DAILY [facility] Last Admin: 04/03/17 08:16 Dose: 1 tab Pantoprazole Sodium (Protonix Ec Tab) 40 mg PO DAILY [facility] Last Admin: 04/03/17 08:15 Dose: 40 mg Tamsulosin HCl (Flomax) 0.8 mg PO HS [facility] Last Admin: 04/02/17 21:26 Dose: 0.8 mg - Labs Labs: 03/27/17 06:40 03/27/17 06:40 Assessment and Plan - Assessment and Plan (Free Text) Plan: 87 y/o male with PMH Afib, HTN, Non Hodgkin Lymphoma, bilateral hearing impairment , LLE DVT was visiting from [place] to [place] where he suddenly fell down in the hotel room , developed slurred speech, RLE weakness and decreased sensation . Patient was admitted at an acute care hospital in [place] and was diagnosed with acute left MCA stroke and now transferred to acute rehab for physical therapy since his daughter lives in [place]. He was admitted with right facial droop, right side weakness and some slurred speech . 1. Acute Left MCA stroke Physiatry consult with Dr. Carey appreciated continue PT/OT/ speech consult on Eliquis, Statin , ASA neurology input appreciated Patient to need outpatient polysomnogram as an outpatient for possible BECKY Wrist splint 2. Atrial fibrillation, controlled Atenolol 50 mg po daily Flecainide 100 mg po q 12 hours Continue Eliquis 3. History LLE DVT on eliquis 4. HTN Continue Atenolol, Lisinopril 5. Bilateral hearing impairment stable 6. BPH on Proscar and Flomax monitor for orthostatic hypotension 7. DVt prophylaxis on Eliquis 8. GERD Protonix 40 mg po daily
[2017-04-04] MEDS: FLECAINIDE 100 MG PO SCH ×2 (08:47→20:19)
[2017-04-04] MEDS: Multivitamin With Minerals Tab PO SCH (08:48)
[2017-04-04] MEDS: Calcium-Vit D 500 mg-200 Units Tab UD PO SCH (08:48)
[2017-04-04] MEDS: Pantoprazole 40 mg EC Tab PO SCH (08:48)
--- NOTE | 2017-04-04 12:22 | CP.PCM.PN ---
Subjective - Date & Time of Evaluation Date of Evaluation: 04/03/17 Time of Evaluation: 20:30 - Subjective Subjective: no acute complaints at present Objective - Vital Signs/Intake and Output Vital Signs (last 24 hours): Temp Pulse Resp BP Pulse Ox 97.3 F L 54 L 18 119/74 98 04/04/17 07:48 04/04/17 08:49 04/04/17 07:48 04/04/17 08:49 04/04/17 08:19 - Medications Medications: Current Medications Acetaminophen (Tylenol 325mg Tab) 650 mg PO Q4 PRN PRN Reason: Pain, severe (8-10) Last Admin: 04/02/17 08:17 Dose: 650 mg Acetaminophen (Tylenol 325mg Tab) 650 mg PO Q6 PRN PRN Reason: Pain, moderate (4-7) Apixaban (Eliquis) 5 mg PO BID [facility] PRN Reason: Protocol Last Admin: 04/04/17 08:47 Dose: 5 mg Aspirin (Aspirin Chewable) 81 mg PO DAILY [facility] Last Admin: 04/04/17 08:48 Dose: 81 mg Atenolol (Tenormin) 50 mg PO DAILY [facility] Last Admin: 04/04/17 08:49 Dose: Not Given Atorvastatin Calcium (Lipitor) 80 mg PO HS [facility] Last Admin: 04/03/17 21:05 Dose: 80 mg Calcium/Vitamin D (Oyster Shell Calcium/Vitamin D 500 Mg-200 Iu) 1 tab PO DAILY [facility] Last Admin: 04/04/17 08:48 Dose: 1 tab Docusate Sodium (Colace) 100 mg PO BID [facility] Last Admin: 04/04/17 08:47 Dose: 100 mg Finasteride (Proscar) 5 mg PO DAILY [facility] Last Admin: 04/04/17 08:48 Dose: 5 mg Home Med (Flecainide [Tambocor]) 100 mg PO Q12 [facility] Last Admin: 04/04/17 08:47 Dose: 100 mg Lactulose (Enulose) 20 gm PO BID PRN PRN Reason: Constipation Lisinopril (Zestril) 10 mg PO DAILY [facility] Last Admin: 04/04/17 08:49 Dose: 10 mg Multivitamins/Minerals (Therapeutic-M Tab) 1 tab PO DAILY [facility] Last Admin: 04/04/17 08:48 Dose: 1 tab Pantoprazole Sodium (Protonix Ec Tab) 40 mg PO DAILY [facility] Last Admin: 04/04/17 08:48 Dose: 40 mg Tamsulosin HCl (Flomax) 0.8 mg PO [facility] Last Admin: 04/03/17 21:06 Dose: 0.8 mg - Labs Labs: 03/27/17 06:40 03/27/17 06:40 - Head Exam Head Exam: ATRAUMATIC, NORMAL INSPECTION, NORMOCEPHALIC - Eye Exam Eye Exam: EOMI, Normal appearance Pupil Exam: NORMAL ACCOMODATION, PERRL - ENT Exam ENT Exam: Mucous Membranes Moist, Normal Exam - Neck Exam Neck Exam: Full ROM, Normal Inspection - Respiratory Exam Respiratory Exam: Clear to Ausculation Bilateral, NORMAL BREATHING PATTERN - Cardiovascular Exam Cardiovascular Exam: REGULAR RHYTHM - GI/Abdominal Exam GI & Abdominal Exam: Normal Bowel Sounds - Rectal Exam Rectal Exam: NORMAL INSPECTION - Exam External exam: NORMAL EXTERNAL EXAM - Extremities Exam Extremities Exam: Normal Capillary Refill, Normal Inspection - Back Exam Back Exam: NORMAL INSPECTION - Neurological Exam Neurological Exam: Alert, Awake Neuro motor strength exam: Left Upper Extremity: 3, Right Upper Extremity: 3, Left Lower Extremity: 3, Right Lower Extremity: 3 - Psychiatric Exam Psychiatric exam: Normal Affect, Normal Mood - Skin Skin Exam: Dry, Normal Color Assessment and Plan (1) CVA (cerebral vascular accident) Assessment & Plan: plan for physical, occupational, rec and speech therapy covering for Dr Carey to return on thursday Continue to monitor skin and bowel Status: Acute
[2017-04-05] MEDS: Multivitamin With Minerals Tab PO SCH (08:47)
[2017-04-05] MEDS: Pantoprazole 40 mg EC Tab PO SCH (08:47)
[2017-04-05] MEDS: FLECAINIDE 100 MG PO SCH ×2 (08:48→21:16)
[2017-04-05] MEDS: Calcium-Vit D 500 mg-200 Units Tab UD PO SCH (08:48)
[2017-04-06] MEDS: FLECAINIDE 100 MG PO SCH ×2 (08:16→22:37)
[2017-04-06] MEDS: Pantoprazole 40 mg EC Tab PO SCH (08:18)
[2017-04-06] MEDS: Multivitamin With Minerals Tab PO SCH (08:18)
[2017-04-06] MEDS: Calcium-Vit D 500 mg-200 Units Tab UD PO SCH (08:18)
--- NOTE | 2017-04-06 12:21 | CP.PCM.PN ---
Subjective - Date & Time of Evaluation Date of Evaluation: 04/06/17 Time of Evaluation: 12:20 - Subjective Subjective: Patient seen and examined at bedside for CVA. He is produced pain with physical therapy well, and has no complaints at this time. Denies chest pain, shortness of breath, calf tenderness or weakness. He is hemodynamically stable and in no acute distress. Objective - Vital Signs/Intake and Output Vital Signs (last 24 hours): Temp Pulse Resp BP Pulse Ox 97.5 F L 51 L 20 141/58 L 97 04/06/17 09:24 04/06/17 09:24 04/06/17 09:24 04/06/17 09:24 04/06/17 09:24 Intake and Output: Physical exam: Constitutional- cooperative, awake, alert. Head- NCAT, PERRL Eye- PERRL, normal accommodation ENT- normal exam, MMM. Neck- normal inspection, supple, no JVD Respiratory- CTAB, no wheezes rales rhonchi Cardiovascular- RRR, +S1, +S2 no MRG GI/Abdominal- normal bowel sounds, soft, no mass, no hsm Skin- warm, dry Extremities Exam- normal capillary refill, normal inspection Neurological Exam- alert, awake Psych- normal mood, normal affect - Medications Medications: Current Medications Acetaminophen (Tylenol 325mg Tab) 650 mg PO Q4 PRN PRN Reason: pain,(4-10) Apixaban (Eliquis) 5 mg PO BID [facility] PRN Reason: Protocol Last Admin: 04/06/17 08:18 Dose: 5 mg Aspirin (Aspirin Chewable) 81 mg PO DAILY [facility] Last Admin: 04/06/17 08:19 Dose: 81 mg Atenolol (Tenormin) 50 mg PO DAILY [facility] Last Admin: 04/06/17 08:18 Dose: 50 mg Atorvastatin Calcium (Lipitor) 80 mg PO HS [facility] Last Admin: 04/05/17 21:15 Dose: 80 mg Calcium/Vitamin D (Oyster Shell Calcium/Vitamin D 500 Mg-200 Iu) 1 tab PO DAILY [facility] Last Admin: 04/06/17 08:18 Dose: 1 tab Docusate Sodium (Colace) 100 mg PO BID [facility] Last Admin: 04/06/17 08:17 Dose: 100 mg Finasteride (Proscar) 5 mg PO DAILY [facility] Last Admin: 04/06/17 08:19 Dose: 5 mg Home Med (Flecainide [Tambocor]) 100 mg PO Q12 [facility] Last Admin: 04/06/17 08:16 Dose: 100 mg Lactulose (Enulose) 20 gm PO BID PRN PRN Reason: Constipation Last Admin: 04/05/17 17:00 Dose: 20 gm Lisinopril (Zestril) 10 mg PO DAILY [facility] Last Admin: 04/06/17 08:18 Dose: 10 mg Multivitamins/Minerals (Therapeutic-M Tab) 1 tab PO DAILY [facility] Last Admin: 04/06/17 08:18 Dose: 1 tab Pantoprazole Sodium (Protonix Ec Tab) 40 mg PO DAILY [facility] Last Admin: 04/06/17 08:18 Dose: 40 mg Tamsulosin HCl (Flomax) 0.8 mg PO HS [facility] Last Admin: 04/03/17 21:06 Dose: 0.8 mg - Labs Labs: 03/27/17 06:40 03/27/17 06:40 Assessment and Plan - Assessment and Plan (Free Text) Plan: 87 y/o male with PMH Afib, HTN, Non Hodgkin Lymphoma, bilateral hearing impairment , LLE DVT was visiting from [place] to [place] where he suddenly fell down in the hotel room , developed slurred speech, RLE weakness and decreased sensation . Patient was admitted at an acute care hospital in [place] and was diagnosed with acute left MCA stroke and now transferred to acute rehab for physical therapy since his daughter lives in [place]. He was admitted with right facial droop, right side weakness and some slurred speech . 1. Acute Left MCA stroke Physiatry consult with Dr. Carey appreciated continue PT/OT/ speech consult on Eliquis, Statin , ASA neurology input appreciated Patient to need outpatient polysomnogram as an outpatient for possible BECKY Wrist splint 2. Atrial fibrillation, controlled Atenolol 50 mg po daily Flecainide 100 mg po q 12 hours Continue Eliquis 3. History LLE DVT on eliquis 4. HTN Continue Atenolol, Lisinopril 5. Bilateral hearing impairment stable 6. BPH on Proscar and Flomax monitor for orthostatic hypotension 7. DVt prophylaxis on Eliquis 8. GERD Protonix 40 mg po daily
--- NOTE | 2017-04-06 18:35 | CP.PCM.PN ---
Subjective - Date & Time of Evaluation Date of Evaluation: 04/06/17 Time of Evaluation: 18:35 - Subjective Subjective: Patient seen in room doing ok feels like has some stuffed sinus but no fever doing well in therapies with 150' ambulation RW continue current care Objective - Vital Signs/Intake and Output Vital Signs (last 24 hours): Temp Pulse Resp BP Pulse Ox 97.5 F L 60 20 141/58 L 97 04/06/17 09:24 04/06/17 15:20 04/06/17 09:24 04/06/17 09:24 04/06/17 15:20 - Medications Medications: Current Medications Acetaminophen (Tylenol 325mg Tab) 650 mg PO Q4 PRN PRN Reason: pain,(4-10) Apixaban (Eliquis) 5 mg PO BID [facility] PRN Reason: Protocol Last Admin: 04/06/17 17:17 Dose: 5 mg Aspirin (Aspirin Chewable) 81 mg PO DAILY [facility] Last Admin: 04/06/17 08:19 Dose: 81 mg Atenolol (Tenormin) 50 mg PO DAILY [facility] Atorvastatin Calcium (Lipitor) 80 mg PO HS [facility] Last Admin: 04/05/17 21:15 Dose: 80 mg Calcium/Vitamin D (Oyster Shell Calcium/Vitamin D 500 Mg-200 Iu) 1 tab PO DAILY [facility] Last Admin: 04/06/17 08:18 Dose: 1 tab Docusate Sodium (Colace) 100 mg PO BID [facility] Last Admin: 04/06/17 17:17 Dose: 100 mg Finasteride (Proscar) 5 mg PO DAILY [facility] Last Admin: 04/06/17 08:19 Dose: 5 mg Home Med (Flecainide [Tambocor]) 100 mg PO Q12 [facility] Last Admin: 04/06/17 08:16 Dose: 100 mg Lactulose (Enulose) 20 gm PO BID PRN PRN Reason: Constipation Last Admin: 04/05/17 17:00 Dose: 20 gm Lisinopril (Zestril) 10 mg PO DAILY [facility] Last Admin: 04/06/17 08:18 Dose: 10 mg Multivitamins/Minerals (Therapeutic-M Tab) 1 tab PO DAILY [facility] Last Admin: 04/06/17 08:18 Dose: 1 tab Pantoprazole Sodium (Protonix Ec Tab) 40 mg PO DAILY [facility] Last Admin: 04/06/17 08:18 Dose: 40 mg Tamsulosin HCl (Flomax) 0.8 mg PO HS [facility] Last Admin: 04/03/17 21:06 Dose: 0.8 mg - Labs Labs: 03/27/17 06:40 03/27/17 06:40
[2017-04-07] MEDS: Pantoprazole 40 mg EC Tab PO SCH (09:00)
[2017-04-07] MEDS: FLECAINIDE 100 MG PO SCH ×2 (09:00→21:14)
[2017-04-07] MEDS: Calcium-Vit D 500 mg-200 Units Tab UD PO SCH (09:00)
[2017-04-07] MEDS: Multivitamin With Minerals Tab PO SCH (09:00)
--- NOTE | 2017-04-07 13:14 | PSY.TMCNF ---
Nursing - Vital Signs Vital Signs (Last 8 hours): Vital Signs 04/07/17 04/07/17 04/07/17 09:00 09:20 10:00 Temperature 97.9 F Pulse Rate 64 64 64 Respiratory 19 Rate Blood Pressure 150/67 150/67 150/57 L O2 Sat by Pulse 98 Oximetry Pain: 0 - Medications/Other Issues Comment: Pt at moderate nutritional risk. goal: 1. Pt to consume 75-100% of meals (partially met, continue). Follow-up due on 04/08/2017 - Bladder Management Bladder Pattern: Normal Voiding Method: Toilet, Urinal - Bowel Management Bowel Pattern: Normal - Goals/Time Frame Comments: Pt was seen following OT session and brought into the recreation room. Pt agreeable to visit. Pt reported that he would like to be called "Ed" throughout his stay. Pt was able to identify his leisure interests such as watching television, reading, and enjoys writing. 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 Pt reported that he lives in [place] with and traveled to [place] to visit the [employer] and then travel to daughters home in [place] for Thanksgiving. Pt reported that his son and are currently staying in [place] at daughter's home until pt is medically stable to travel back to [place]. Pt presented with slurred speech and is hard of hearing although has B/L hearing aides. Pt would benefit from recreation therapy throughout stay on unit. Physical Therapy - Bed Mobility Bed Mobility: Contact Guard - Transfers Wheelchair to Mat: Minimal Assistance Sit to Stand: Contact Guard - Ambulation Level of Assistance: Contact Guard Distance (ft.): 150 Assistive Devices: Rolling Walker Comment: -trials with SPC for 50 ft with min A - Stair Negotiation Stairs: Level of Assistance: Verbal Cues, Contact Guard Number of Stairs: 12 Handrails: Bilateral Stairs: Assistive Devices: Left Handrail, Right Handrail - Standing Balance Static Stand: Contact Guard Assist Dynamic Stand: Minimal Assistance - Pain Management Techniques: Inactivity Comment: neck pain - Insight/Carryover Insight/Carryover: Fair - Patient/Family Education Comment: CVA recovery, role of OT and rehab, DME, safety and compensatory strategies with ADLs and transfers, pt requires continued education and reinforcement - Assessment/Plan Assessment: Recommend continued OT services 5-6x/week to maximize independence with ADLs and functional transfers in order to return home safely with and decrease risk for falls - Goals Timeframe: 1 week Goals: S UE dressing. S LE dressing. S toileting. S toilet txfer. S bathing. S grooming - Provider License Number: [id number] Occupational Therapy - Arousal/Attention/Orientation Level of Consciousness: Awake, Alert Patient Orientation: Place, Time, Appropriate to Age, Appropriate to Situation - ADL/IADL Self Feeding: Supervision, Verbal Cues, Set-up Help Grooming: Verbal Cues, Set-up Help, Minimal Assistance Dressing-Upper Extremity: Moderate Assistance Dressing-Lower Extremity: Maximum Assistance - Sitting Balance Static Sitting: Supervision Dynamic Sitting: Contact Guard Assist - Transfers Wheelchair to Bed Transfers: Verbal Cues, Set-up Help, Minimal Assistance Toilet Transfers: Verbal Cues, Set-up Help, Minimal Assistance - Wheelchair Management Level of Assistance: Dependent - Upper Extremity Status Right Upper Extremity Comment: ROM WFL with exception to digits, 3+/5, impaired fine motor coordination Left Upper Extremity Comment: ROM WFL, MMT grossly 4+/5 - Pain Alleviating Techniques: Inactivity Comment: neck pain - Insight/Carryover Insight/Carryover: Fair - Patient/Family Education Comment: CVA recovery, role of OT and rehab, DME, safety and compensatory strategies with ADLs and transfers, pt requires continued education and reinforcement - Assessment/Plan Assessment: Recommend continued OT services 5-6x/week to maximize independence with ADLs and functional transfers in order to return home safely with and decrease risk for falls - Goals Timeframe: 1 week Goals: S UE dressing. S LE dressing. S toileting. S toilet txfer. S bathing. S grooming - Provider Therapist: Cherelle Johnson License Number: [id number] Speech Therapy - Consult Information Patient on Program: Yes Medical Diagnosis: CVA Treatment Diagnosis: -moderate dysarthria. -mild-moderate oropharyngeal dysphagia. -mild cognitive deficits - Assessment Memory Impairment: Mild Speech/Articulation Impairment: Moderate Dysphagia/Swallowing Impairment: Moderate Comment: mild-moderate - Plan Assessment: Recommend continued OT services 5-6x/week to maximize independence with ADLs and functional transfers in order to return home safely with and decrease risk for falls - Provider Therapist: Teresa Grace License Number: [id number] Recreational Therapy - Participation Participation: Monitors His/Her Own Leisure Time - Attendance Attendance: Daily - Activities Leisure Activities: Television - Socialization Level of Socialization: Initiates/interacts freely with care givers and peer - Diversional Time Diversional Time: reading the newspaper, socializing - Assessment Assessment/Plan: Recommend continued OT services 5-6x/week to maximize independence with ADLs and functional transfers in order to return home safely with and decrease risk for falls - Provider Therapist: Ana Chong, CERTIFIED FRAUD EXAMINER #[id number] Nutrition - Current Diet Current Diet/ Supplement/ Feedings: heart healthy advanced bite size nectar thick - Appetite Percent Meal Consumed: 50-74% - Assessment/Goals/Time Frame Assessment/Goals/Time Frame: Pt at moderate nutritional risk. goal: 1. Pt to consume 75-100% of meals (partially met, continue). Follow-up due on 04/08/2017 - Provider Provider: Zabrina Head RD Case Management - Psychosocial Assessment Support Systems: Lives with Spouse Amarilis in [place] [phone]. Will temporarily stay with daughter in [place]. Son Parveen lives in [place] Psychological Interventions/Needs: Pt is alert and oriented x3, with short term recall deficits and dysphagia Discharge Concerns: Pt will likel require 24hr supervision Patient/Family Meeting: CM met with pt and pt's as well as rehab team Intervention/Goal/Outcome:: 1. Tentative d/c date scheduled for 04/15/17 2. GOAL : 24hr supervision. 3. DME: TBD 4. Home with skilled homecare -will temporarily stay with daughter and in [place] - Discharge Plan Discharge Plan: Home with significant other/family Home Services: Refer to [facility] - Provider Provider: Rosa Sánchez MSW, REAL ESTATE LISTING CONSULTANT License Number: [id number] Rehabilitation Plan - Treatment Plan Treatment Plan: Physical Therapy, Occupational Therapy, Speech, Dietary, Patient /Family Education - Discharge Plan Estimated Date of Discharge: 04/15/17 Discharge to: Home
--- NOTE | 2017-04-07 13:55 | CP.PCM.PN ---
Subjective - Date & Time of Evaluation Date of Evaluation: 04/07/17 Time of Evaluation: 13:54 - Subjective Subjective: Pt seen in room and daughter are present and discussed with them at length he is tired often and will consider adding oxandrin but will hold off at this point improved overall function in all aspects family is impressed continue current care Objective - Vital Signs/Intake and Output Vital Signs (last 24 hours): Temp Pulse Resp BP Pulse Ox 97.9 F 64 19 150/57 L 98 04/07/17 10:00 04/07/17 10:00 04/07/17 10:00 04/07/17 10:00 04/07/17 10:00 - Medications Medications: Current Medications Acetaminophen (Tylenol 325mg Tab) 650 mg PO Q4 PRN PRN Reason: pain,(4-10) Apixaban (Eliquis) 5 mg PO BID [facility] PRN Reason: Protocol Last Admin: 04/07/17 09:21 Dose: 5 mg Aspirin (Aspirin Chewable) 81 mg PO DAILY [facility] Last Admin: 04/07/17 09:00 Dose: 81 mg Atenolol (Tenormin) 50 mg PO DAILY [facility] Last Admin: 04/07/17 09:00 Dose: 50 mg Atorvastatin Calcium (Lipitor) 80 mg PO HS [facility] Last Admin: 04/06/17 22:37 Dose: 80 mg Calcium/Vitamin D (Oyster Shell Calcium/Vitamin D 500 Mg-200 Iu) 1 tab PO DAILY [facility] Last Admin: 04/07/17 09:00 Dose: 1 tab Docusate Sodium (Colace) 100 mg PO BID [facility] Last Admin: 04/07/17 09:22 Dose: 100 mg Finasteride (Proscar) 5 mg PO DAILY [facility] Last Admin: 04/07/17 09:00 Dose: 5 mg Home Med (Flecainide [Tambocor]) 100 mg PO Q12 [facility] Last Admin: 04/07/17 09:00 Dose: 100 mg Lactulose (Enulose) 20 gm PO BID [facility]N PRN Reason: Constipation Last Admin: 04/05/17 17:00 Dose: 20 gm Lisinopril (Zestril) 10 mg PO DAILY [facility] Last Admin: 04/07/17 09:20 Dose: 10 mg Multivitamins/Minerals (Therapeutic-M Tab) 1 tab PO DAILY [facility] Last Admin: 04/07/17 09:00 Dose: 1 tab Pantoprazole Sodium (Protonix Ec Tab) 40 mg PO DAILY [facility] Last Admin: 04/07/17 09:00 Dose: 40 mg Tamsulosin HCl (Flomax) 0.8 mg PO HS [facility] Last Admin: 04/03/17 21:06 Dose: 0.8 mg - Labs Labs: 03/27/17 06:40 03/27/17 06:40
[2017-04-08] MEDS: Multivitamin With Minerals Tab PO SCH (08:23)
[2017-04-08] MEDS: Calcium-Vit D 500 mg-200 Units Tab UD PO SCH (08:23)
[2017-04-08] MEDS: FLECAINIDE 100 MG PO SCH ×2 (08:23→21:20)
[2017-04-08] MEDS: Pantoprazole 40 mg EC Tab PO SCH (08:25)
--- NOTE | 2017-04-08 12:07 | CP.PCM.PN ---
Subjective - Date & Time of Evaluation Date of Evaluation: 04/08/17 Time of Evaluation: 12:06 - Subjective Subjective: pt seen, examined for CVA. doing well, participating well in therapy, making gains. HD stable, NAD, no complaints at this time. Objective - Vital Signs/Intake and Output Vital Signs (last 24 hours): Temp Pulse Resp BP Pulse Ox 97.4 F L 57 L 19 148/63 97 04/08/17 08:16 04/08/17 08:24 04/08/17 08:16 04/08/17 08:23 04/08/17 08:16 - Medications Medications: Current Medications Acetaminophen (Tylenol 325mg Tab) 650 mg PO Q4 PRN PRN Reason: pain,(4-10) Last Admin: 04/07/17 15:13 Dose: 650 mg Apixaban (Eliquis) 5 mg PO BID [facility] PRN Reason: Protocol Last Admin: 04/08/17 08:24 Dose: 5 mg Aspirin (Aspirin Chewable) 81 mg PO DAILY [facility] Last Admin: 04/08/17 08:23 Dose: 81 mg Atenolol (Tenormin) 50 mg PO DAILY [facility] Last Admin: 04/08/17 08:24 Dose: Not Given Atorvastatin Calcium (Lipitor) 80 mg PO HS [facility] Last Admin: 04/07/17 21:14 Dose: 80 mg Calcium/Vitamin D (Oyster Shell Calcium/Vitamin D 500 Mg-200 Iu) 1 tab PO DAILY [facility] Last Admin: 04/08/17 08:23 Dose: 1 tab Docusate Sodium (Colace) 100 mg PO BID [facility] Last Admin: 04/08/17 08:23 Dose: 100 mg Finasteride (Proscar) 5 mg PO DAILY [facility] Last Admin: 04/08/17 08:23 Dose: 5 mg Home Med (Flecainide [Tambocor]) 100 mg PO Q12 [facility] Last Admin: 04/08/17 08:23 Dose: 100 mg Lactulose (Enulose) 20 gm PO BID PRN PRN Reason: Constipation Last Admin: 04/05/17 17:00 Dose: 20 gm Lisinopril (Zestril) 10 mg PO DAILY [facility] Last Admin: 04/08/17 08:23 Dose: 10 mg Multivitamins/Minerals (Therapeutic-M Tab) 1 tab PO DAILY [facility] Last Admin: 04/08/17 08:23 Dose: 1 tab Pantoprazole Sodium (Protonix Ec Tab) 40 mg PO DAILY [facility] Last Admin: 04/08/17 08:25 Dose: 40 mg Tamsulosin HCl (Flomax) 0.8 mg PO HS [facility] Last Admin: 04/03/17 21:06 Dose: 0.8 mg - Labs Labs: 03/27/17 06:40 03/27/17 06:40 - Constitutional Appears: Non-toxic, No Acute Distress - Head Exam Head Exam: ATRAUMATIC, NORMOCEPHALIC - Eye Exam Eye Exam: EOMI, Normal appearance, PERRL - ENT Exam ENT Exam: Mucous Membranes Moist, Normal Oropharynx - Respiratory Exam Respiratory Exam: Clear to Ausculation Bilateral, NORMAL BREATHING PATTERN - Cardiovascular Exam Cardiovascular Exam: RRR, +S1, +S2. absent: Gallop, Rubs - GI/Abdominal Exam GI & Abdominal Exam: Soft, Normal Bowel Sounds. absent: Organomegaly - Back Exam Back Exam: absent: CVA tenderness (L), CVA tenderness (R) - Neurological Exam Neurological Exam: Alert, Awake - Psychiatric Exam Psychiatric exam: Normal Affect, Normal Mood - Skin Skin Exam: Dry, Normal Color, Warm Assessment and Plan - Assessment and Plan (Free Text) Plan: 87 y/o male with PMH Afib, HTN, Non Hodgkin Lymphoma, bilateral hearing impairment , LLE DVT was visiting from [place] to [place] where he suddenly fell down in the hotel room , developed slurred speech, RLE weakness and decreased sensation . Patient was admitted at an acute care hospital in [place] and was diagnosed with acute left MCA stroke and now transferred to acute rehab for physical therapy since his daughter lives in [place]. He was admitted with right facial droop, right side weakness and some slurred speech . 1. Acute Left MCA stroke Physiatry consult with Dr. Carey appreciated continue PT/OT/ speech consult on Eliquis, Statin , ASA neurology input appreciated Patient to need outpatient polysomnogram as an outpatient for possible BECKY Wrist splint 2. Atrial fibrillation, controlled Atenolol 50 mg po daily Flecainide 100 mg po q 12 hours Continue Eliquis 3. History LLE DVT on eliquis 4. HTN Continue Atenolol, Lisinopril 5. Bilateral hearing impairment stable 6. BPH on Proscar and Flomax monitor for orthostatic hypotension 7. DVt prophylaxis on Eliquis 8. GERD Protonix 40 mg po daily
[2017-04-09] MEDS: FLECAINIDE 100 MG PO SCH ×2 (09:18→21:17)
[2017-04-09] MEDS: Calcium-Vit D 500 mg-200 Units Tab UD PO SCH (09:19)
[2017-04-09] MEDS: Multivitamin With Minerals Tab PO SCH (09:19)
[2017-04-09] MEDS: Pantoprazole 40 mg EC Tab PO SCH (09:19)
--- NOTE | 2017-04-09 17:01 | CP.PCM.PN ---
Subjective - Date & Time of Evaluation Date of Evaluation: 04/09/17 Time of Evaluation: 16:58 - Subjective Subjective: patient seen examined bedside for CVA. complains of neck pain today which he states is bothering him, but is similar to when he initially presented after fall in [place]. We will obtain CT C spine for eval for fx. Prior C spine XR neg for fracture in [place]. HD stable, NAD. Objective - Vital Signs/Intake and Output Vital Signs (last 24 hours): Temp Pulse Resp BP Pulse Ox 97.5 F L 62 18 117/59 L 98 04/09/17 10:00 04/09/17 10:00 04/09/17 10:00 04/09/17 10:00 04/09/17 10:00 - Medications Medications: Current Medications Acetaminophen (Tylenol 325mg Tab) 650 mg PO Q4 PRN PRN Reason: pain,(4-10) Last Admin: 04/07/17 15:13 Dose: 650 mg Apixaban (Eliquis) 5 mg PO BID [facility] PRN Reason: Protocol Last Admin: 04/09/17 09:18 Dose: 5 mg Aspirin (Aspirin Chewable) 81 mg PO DAILY [facility] Last Admin: 04/09/17 09:18 Dose: 81 mg Atenolol (Tenormin) 50 mg PO DAILY [facility] Last Admin: 04/09/17 09:19 Dose: 50 mg Atorvastatin Calcium (Lipitor) 80 mg PO HS [facility] Last Admin: 04/08/17 21:20 Dose: 80 mg Calcium/Vitamin D (Oyster Shell Calcium/Vitamin D 500 Mg-200 Iu) 1 tab PO DAILY [facility] Last Admin: 04/09/17 09:19 Dose: 1 tab Docusate Sodium (Colace) 100 mg PO BID [facility] Last Admin: 04/09/17 09:18 Dose: 100 mg Finasteride (Proscar) 5 mg PO DAILY [facility] Last Admin: 04/09/17 09:19 Dose: 5 mg Home Med (Flecainide [Tambocor]) 100 mg PO Q12 [facility] Last Admin: 04/09/17 09:18 Dose: 100 mg Lactulose (Enulose) 20 gm PO BID PRN PRN Reason: Constipation Last Admin: 04/05/17 17:00 Dose: 20 gm Lisinopril (Zestril) 10 mg PO DAILY [facility] Last Admin: 04/09/17 09:20 Dose: 10 mg Multivitamins/Minerals (Therapeutic-M Tab) 1 tab PO DAILY [facility] Last Admin: 04/09/17 09:19 Dose: 1 tab Pantoprazole Sodium (Protonix Ec Tab) 40 mg PO DAILY [facility] Last Admin: 04/09/17 09:19 Dose: 40 mg Tamsulosin HCl (Flomax) 0.8 mg PO HS [facility] Last Admin: 04/03/17 21:06 Dose: 0.8 mg - Labs Labs: 03/27/17 06:40 03/27/17 06:40 - Constitutional Appears: Well, Non-toxic, No Acute Distress - Head Exam Head Exam: ATRAUMATIC, NORMOCEPHALIC - Eye Exam Eye Exam: EOMI, Normal appearance, PERRL Pupil Exam: NORMAL ACCOMODATION - ENT Exam ENT Exam: Mucous Membranes Moist, Normal Exam - Neck Exam Neck Exam: Normal Inspection. absent: Lymphadenopathy - Respiratory Exam Respiratory Exam: Clear to Ausculation Bilateral, NORMAL BREATHING PATTERN - Cardiovascular Exam Cardiovascular Exam: REGULAR RHYTHM, +S1, +S2. absent: Murmur - GI/Abdominal Exam GI & Abdominal Exam: Soft, Normal Bowel Sounds. absent: Tenderness - Extremities Exam Extremities Exam: Normal Capillary Refill, Normal Inspection. absent: Joint Swelling, Pedal Edema - Back Exam Back Exam: absent: CVA tenderness (L), CVA tenderness (R) - Neurological Exam Neurological Exam: Alert, Awake - Psychiatric Exam Psychiatric exam: Normal Affect, Normal Mood - Skin Skin Exam: Dry, Intact, Normal Color, Warm Assessment and Plan - Assessment and Plan (Free Text) Plan: 87 y/o male with PMH Afib, HTN, Non Hodgkin Lymphoma, bilateral hearing impairment , LLE DVT was visiting from [place] to [place] where he suddenly fell down in the hotel room , developed slurred speech, RLE weakness and decreased sensation . Patient was admitted at an acute care hospital in [place] and was diagnosed with acute left MCA stroke and now transferred to acute rehab for physical therapy since his daughter lives in [place]. He was admitted with right facial droop, right side weakness and some slurred speech . Pt expressing concern for the same neck pain he had when he was in [place]. XR negative for fracture. Will obtain CT spine - NEG for fx. 1. Acute Left MCA stroke Physiatry consult with Dr. Carey appreciated continue PT/OT/ speech consult on Eliquis, Statin , ASA neurology input appreciated Patient to need outpatient polysomnogram as an outpatient for possible BECKY Wrist splint 2. Atrial fibrillation, controlled Atenolol 50 mg po daily Flecainide 100 mg po q 12 hours Continue Eliquis 3. History LLE DVT on eliquis 4. HTN Continue Atenolol, Lisinopril 5. Bilateral hearing impairment stable 6. BPH on Proscar and Flomax monitor for orthostatic hypotension 7. DVt prophylaxis on Eliquis 8. GERD Protonix 40 mg po daily
--- NOTE | 2017-04-09 18:24 | CP.PCM.PN ---
Subjective - Date & Time of Evaluation Date of Evaluation: 04/09/17 Time of Evaluation: 18:22 - Subjective Subjective: Patient seen in room c/o cervical pain. has good ROM no radicular symptoms I will get an x-ray given families concern No red flags on evaluation or history continue current care ambulating well Objective - Vital Signs/Intake and Output Vital Signs (last 24 hours): Temp Pulse Resp BP Pulse Ox 97.5 F L 62 18 117/59 L 98 04/09/17 10:00 04/09/17 10:00 04/09/17 10:00 04/09/17 10:00 04/09/17 10:00 - Medications Medications: Current Medications Acetaminophen (Tylenol 325mg Tab) 650 mg PO Q4 PRN PRN Reason: pain,(4-10) Last Admin: 04/07/17 15:13 Dose: 650 mg Apixaban (Eliquis) 5 mg PO BID [facility] PRN Reason: Protocol Last Admin: 04/09/17 17:36 Dose: 5 mg Aspirin (Aspirin Chewable) 81 mg PO DAILY [facility] Last Admin: 04/09/17 09:18 Dose: 81 mg Atenolol (Tenormin) 50 mg PO DAILY [facility] Last Admin: 04/09/17 09:19 Dose: 50 mg Atorvastatin Calcium (Lipitor) 80 mg PO HS [facility] Last Admin: 04/08/17 21:20 Dose: 80 mg Calcium/Vitamin D (Oyster Shell Calcium/Vitamin D 500 Mg-200 Iu) 1 tab PO DAILY [facility] Last Admin: 04/09/17 09:19 Dose: 1 tab Docusate Sodium (Colace) 100 mg PO BID [facility] Last Admin: 04/09/17 17:35 Dose: 100 mg Finasteride (Proscar) 5 mg PO DAILY [facility] Last Admin: 04/09/17 09:19 Dose: 5 mg Home Med (Flecainide [Tambocor]) 100 mg PO Q12 [facility] Last Admin: 04/09/17 09:18 Dose: 100 mg Lactulose (Enulose) 20 gm PO BID PRN PRN Reason: Constipation Last Admin: 04/05/17 17:00 Dose: 20 gm Lisinopril (Zestril) 10 mg PO DAILY [facility] Last Admin: 04/09/17 09:20 Dose: 10 mg Multivitamins/Minerals (Therapeutic-M Tab) 1 tab PO DAILY [facility] Last Admin: 04/09/17 09:19 Dose: 1 tab Pantoprazole Sodium (Protonix Ec Tab) 40 mg PO DAILY [facility] Last Admin: 04/09/17 09:19 Dose: 40 mg Tamsulosin HCl (Flomax) 0.8 mg PO HS [facility] Last Admin: 04/03/17 21:06 Dose: 0.8 mg - Labs Labs: 03/27/17 06:40 03/27/17 06:40
--- NOTE | 2017-04-09 20:23 | CT ---
EXAM: CT Cervical Spine Without Intravenous Contrast CLINICAL HISTORY: 87 years old, male; Pain and injury or trauma; Fall; Initial encounter; Blunt trauma; Neck pain; Injury details: Patient states: He fell about 2 weeks ago, and has been having neck pain; Additional info: Neck pain S/P fall, R/O fracture TECHNIQUE: Axial computed tomography images of the cervical spine without intravenous contrast. All CT scans at this facility use one or more dose reduction techniques, viz.: automated exposure control; ma/kV adjustment per patient size (including targeted exams where dose is matched to indication; i.e. head); or iterative reconstruction technique. Coronal and sagittal reformatted images were created and reviewed. COMPARISON: None. FINDINGS: Vertebrae: No acute fracture. Alignment: Preservation of the normal curvature of the cervical spine. Discs/spinal canal/neural foramina: No acute findings. Degenerative disease is noted, with osteophyte formation, disc space narrowing, endplate changes and significant facet arthropathy. Thickening of the transverse ligament is suspected with accompanying synovial hypertrophy. Soft tissues: Symmetric Lung apices: The visualized lung apices are clear. IMPRESSION: Significant degenerative disease, without acute fracture.
[2017-04-10] MEDS: Multivitamin With Minerals Tab PO SCH (09:25)
[2017-04-10] MEDS: Pantoprazole 40 mg EC Tab PO SCH (09:25)
[2017-04-10] MEDS: Calcium-Vit D 500 mg-200 Units Tab UD PO SCH (09:26)
[2017-04-10] MEDS: FLECAINIDE 100 MG PO SCH ×2 (09:26→21:46)
--- NOTE | 2017-04-10 09:35 | RAD ---
PROCEDURE: Cervical Spine Radiographs. HISTORY: Pain. COMPARISON: None. FINDINGS: BONES: Alignment maintained. No fracture. Dens Intact. DISC SPACES: Multilevel disc space narrowing with anterior osteophytic changes. SOFT TISSUES: Normal. No prevertebral soft tissue swelling. OTHER FINDINGS: None. IMPRESSION: No demonstrated fracture dislocation. Multilevel degenerative changes.
[2017-04-11] MEDS: FLECAINIDE 100 MG PO SCH ×2 (09:00→21:22)
[2017-04-11] MEDS: Multivitamin With Minerals Tab PO SCH (09:00)
[2017-04-11] MEDS: Pantoprazole 40 mg EC Tab PO SCH (09:00)
[2017-04-11] MEDS: Calcium-Vit D 500 mg-200 Units Tab UD PO SCH (09:00)
[2017-04-12] MEDS: Pantoprazole 40 mg EC Tab PO SCH (09:00)
[2017-04-12] MEDS: FLECAINIDE 100 MG PO SCH ×2 (09:00→21:56)
[2017-04-12] MEDS: Multivitamin With Minerals Tab PO SCH (09:00)
[2017-04-12] MEDS: Calcium-Vit D 500 mg-200 Units Tab UD PO SCH (09:00)
[2017-04-13] MEDS: Multivitamin With Minerals Tab PO SCH (08:27)
[2017-04-13] MEDS: FLECAINIDE 100 MG PO SCH ×2 (08:27→21:23)
[2017-04-13] MEDS: Calcium-Vit D 500 mg-200 Units Tab UD PO SCH (08:27)
[2017-04-13] MEDS: Pantoprazole 40 mg EC Tab PO SCH (08:28)
[2017-04-13] MEDS ORDERED: Magnesium Hydroxide Susp 30 ml UD PO PRN (11:03)
--- NOTE | 2017-04-13 11:29 | CP.PCM.PN ---
Subjective - Date & Time of Evaluation Date of Evaluation: 04/13/17 Time of Evaluation: 10:00 - Subjective Subjective: The patient was seen and examined while in rehab. He was on his exercise bike. He states that overall he is feeling well, but is complaining of constipation. He relates that the Lactulose worked last time but gave him abdominal cramps. He denies any cp, sob, palpitations, neck pain. He states that pt/ot is going well. Objective - Vital Signs/Intake and Output Vital Signs (last 24 hours): Temp Pulse Resp BP Pulse Ox 97.0 F L 53 L 20 132/51 L 99 04/13/17 08:10 04/13/17 08:28 04/13/17 08:10 04/13/17 08:28 04/13/17 08:10 - Medications Medications: Current Medications Acetaminophen (Tylenol 325mg Tab) 650 mg PO Q4 PRN PRN Reason: pain,(4-10) Last Admin: 04/07/17 15:13 Dose: 650 mg Apixaban (Eliquis) 5 mg PO BID [facility] PRN Reason: Protocol Last Admin: 04/13/17 08:27 Dose: 5 mg Aspirin (Aspirin Chewable) 81 mg PO DAILY [facility] Last Admin: 04/13/17 08:27 Dose: 81 mg Atenolol (Tenormin) 50 mg PO DAILY [facility] Last Admin: 04/13/17 08:28 Dose: Not Given Atorvastatin Calcium (Lipitor) 80 mg PO HS [facility] Last Admin: 04/12/17 21:55 Dose: 80 mg Calcium/Vitamin D (Oyster Shell Calcium/Vitamin D 500 Mg-200 Iu) 1 tab PO DAILY [facility] Last Admin: 04/13/17 08:27 Dose: 1 tab Docusate Sodium (Colace) 100 mg PO BID [facility] Last Admin: 04/13/17 08:27 Dose: 100 mg Finasteride (Proscar) 5 mg PO DAILY [facility] Last Admin: 04/13/17 08:28 Dose: 5 mg Home Med (Flecainide [Tambocor]) 100 mg PO Q12 [facility] Last Admin: 04/13/17 08:27 Dose: 100 mg Lisinopril (Zestril) 10 mg PO DAILY [facility] Last Admin: 04/13/17 08:28 Dose: 10 mg Magnesium Hydroxide (Milk Of Magnesia) 30 ml PO DAILY PRN PRN Reason: Constipation Multivitamins/Minerals (Therapeutic-M Tab) 1 tab PO DAILY [facility] Last Admin: 04/13/17 08:27 Dose: 1 tab Pantoprazole Sodium (Protonix Ec Tab) 40 mg PO DAILY [facility] Last Admin: 04/13/17 08:28 Dose: 40 mg Tamsulosin HCl (Flomax) 0.8 mg PO HS [facility] Last Admin: 04/03/17 21:06 Dose: 0.8 mg - Labs Labs: 03/27/17 06:40 03/27/17 06:40 - Additional Findings Additional findings: Physical exam: Constitutional- cooperative, awake, alert. Head- NCAT, PERRL Eye- PERRL, normal accommodation ENT- normal exam, MMM. Neck- normal inspection, supple, no JVD Respiratory- CTAB, no wheezes rales rhonchi Cardiovascular- RRR, +S1, +S2 no MRG GI/Abdominal- normal bowel sounds, soft, no mass, no hsm Skin- warm, dry Extremities Exam- normal capillary refill, normal inspection Neurological Exam- alert, stable gait Psych- normal mood, normal affect Assessment and Plan - Assessment and Plan (Free Text) Plan: 87 y/o male with PMH Afib, HTN, Non Hodgkin Lymphoma, bilateral hearing impairment , LLE DVT was visiting from [place] to [place] where he suddenly fell down in the hotel room , developed slurred speech, RLE weakness and decreased sensation . Patient was admitted at an acute care hospital in [place] and was diagnosed with acute left MCA stroke and now transferred to acute rehab for physical therapy since his daughter lives in [place]. He was admitted with right facial droop, right side weakness and some slurred speech . 1. Acute Left MCA stroke Physiatry consult with Dr. Carey appreciated continue PT/OT/ speech consult on Eliquis, Statin , ASA neurology input appreciated Patient to need outpatient polysomnogram as an outpatient for possible BECKY 2. Atrial fibrillation, controlled Atenolol 50 mg po daily Flecainide 100 mg po q 12 hours Continue Eliquis 3. History LLE DVT on eliquis 4. HTN Continue Atenolol, Lisinopril 5. Degenerative disc disease of the cervical spine as seen on CT cervical spine pain controlled at this time 5. Bilateral hearing impairment stable 6. BPH on Proscar and Flomax monitor for orthostatic hypotension 7. DVt prophylaxis on Eliquis 8. GERD Protonix 40 mg po daily
--- NOTE | 2017-04-13 20:27 | CP.PCM.PN ---
Subjective - Date & Time of Evaluation Date of Evaluation: 04/13/17 Time of Evaluation: 20:26 - Subjective Subjective: Patient seen in room complains of constipation neck CT and x-ray done and revealed djd but no significant acute issue to be addressed continue supportive care. ambulating 175' x4 fleets enema ordered Objective - Vital Signs/Intake and Output Vital Signs (last 24 hours): Temp Pulse Resp BP Pulse Ox 98.9 F 60 20 136/69 98 04/13/17 19:46 04/13/17 19:46 04/13/17 19:46 04/13/17 19:46 04/13/17 19:46 - Medications Medications: Current Medications Acetaminophen (Tylenol 325mg Tab) 650 mg PO Q4 PRN PRN Reason: pain,(4-10) Last Admin: 04/07/17 15:13 Dose: 650 mg Apixaban (Eliquis) 5 mg PO BID [facility] PRN Reason: Protocol Last Admin: 04/13/17 17:08 Dose: 5 mg Aspirin (Aspirin Chewable) 81 mg PO DAILY [facility] Last Admin: 04/13/17 08:27 Dose: 81 mg Atenolol (Tenormin) 50 mg PO DAILY [facility] Last Admin: 04/13/17 08:28 Dose: Not Given Atorvastatin Calcium (Lipitor) 80 mg PO HS [facility] Last Admin: 04/12/17 21:55 Dose: 80 mg Calcium/Vitamin D (Oyster Shell Calcium/Vitamin D 500 Mg-200 Iu) 1 tab PO DAILY [facility] Last Admin: 04/13/17 08:27 Dose: 1 tab Docusate Sodium (Colace) 100 mg PO BID [facility] Last Admin: 04/13/17 17:07 Dose: 100 mg Finasteride (Proscar) 5 mg PO DAILY [facility] Last Admin: 04/13/17 08:28 Dose: 5 mg Home Med (Flecainide [Tambocor]) 100 mg PO Q12 [facility] Last Admin: 04/13/17 08:27 Dose: 100 mg Lisinopril (Zestril) 10 mg PO DAILY [facility] Last Admin: 04/13/17 08:28 Dose: 10 mg Magnesium Hydroxide (Milk Of Magnesia) 30 ml PO DAILY PRN PRN Reason: Constipation Last Admin: 04/13/17 17:10 Dose: 30 ml Multivitamins/Minerals (Therapeutic-M Tab) 1 tab PO DAILY [facility] Last Admin: 04/13/17 08:27 Dose: 1 tab Pantoprazole Sodium (Protonix Ec Tab) 40 mg PO DAILY [facility] Last Admin: 04/13/17 08:28 Dose: 40 mg Tamsulosin HCl (Flomax) 0.8 mg PO [facility] Last Admin: 04/03/17 21:06 Dose: 0.8 mg - Labs Labs: 03/27/17 06:40 03/27/17 06:40
[2017-04-14] MEDS: FLECAINIDE 100 MG PO SCH ×2 (08:49→21:14)
[2017-04-14] MEDS: Calcium-Vit D 500 mg-200 Units Tab UD PO SCH (08:50)
[2017-04-14] MEDS: Pantoprazole 40 mg EC Tab PO SCH (08:50)
[2017-04-14] MEDS: Phenylephrine 0.25 % Supp PR SCH ×2 (08:50→16:49)
[2017-04-14] MEDS: Multivitamin With Minerals Tab PO SCH (08:51)
--- NOTE | 2017-04-14 13:17 | PSY.TMCNF ---
Nursing - Vital Signs Vital Signs (Last 8 hours): Vital Signs 04/14/17 04/14/17 04/14/17 07:45 08:51 09:00 Temperature 97.0 F L 97.0 F L Pulse Rate 62 62 62 Respiratory 20 20 Rate Blood Pressure 143/54 L 143/54 L 143/54 L O2 Sat by Pulse 95 Oximetry Pain: 0 - Precautions: Precautions: Fall Prevention, Aspiration, Cardiac/Pulmonary - Medications/Other Issues Comment: constipation, safety - Consults Comment: Dr Carey,Dr Kenney - Toileting Toileting: Supervision - Bladder Management Bladder Pattern: Urgency Voiding Method: Toilet Bladder Management: Modified Independent - Bowel Management Bowel Pattern: Normal Bowel Management: Supervision - Transfers Transfers: Supervision - ADL's ADL's: Minimal Assistance - Pain Management Comments: tylenol for pain - Patient/Family Teaching Comments: safety, fall precaution post cva care aspiration precaution - Goals/Time Frame Comments: as per multidiciplinary plan of care - Provider Provider: Denver Martel Physical Therapy - Bed Mobility Bed Mobility: Supervision - Transfers Wheelchair to Mat: Supervision, Verbal Cues Sit to Stand: Supervision, Verbal Cues - Ambulation Level of Assistance: Supervision, Verbal Cues Distance (ft.): 175 Assistive Devices: Rolling Walker - Stair Negotiation Stairs: Level of Assistance: Supervision, Verbal Cues Number of Stairs: 12 Handrails: Bilateral - Standing Balance Static Stand: Supervision Dynamic Stand: Contact Guard Assist - Pain Comment: occasional neck discomfort , relieved with hot pack and position change - Insight/Carryover Insight/Carryover: Good - Patient/Family Education Comment: Family education to be completed 04/14/17 with pt's - Assessment/Plan Assessment: Pt continues to make improvements with all functional tasks, however requires continued OT services to address coordination, R side inattention, strength, endurance and balance to maximize independence with ADLs and functional transfers. - Goals Timeframe: 5 days Goals: MOD I with toileting. MOD I toilet txfers. S with UE dressing. S with LE dressing. S bathing. S with tub txfers - Provider License Number: [id number] Occupational Therapy - Arousal/Attention/Orientation Patient Orientation: Person, Place, Time, Appropriate to Age, Appropriate to Situation - ADL/IADL Self Feeding: Modified Independent Grooming: Modified Independent Bathing-Upper Extremity: Supervision, Verbal Cues, Set-up Help Bathing-Lower Extremity: Verbal Cues, Set-up Help, Minimal Assistance Dressing-Upper Extremity: Supervision, Verbal Cues, Set-up Help Dressing-Lower Extremity: Verbal Cues, Set-up Help, Minimal Assistance - Sitting Balance Static Sitting: Independent without upper extremity support Dynamic Sitting: Reaches across midline, Reaches out of base of support, Reaches within base of support - Transfers Wheelchair to Bed Transfers: Supervision, Verbal Cues, Set-up Help Toilet Transfers: Supervision, Verbal Cues, Set-up Help Tub Transfers: Verbal Cues, Set-up Help, Minimal Assistance - Wheelchair Management Level of Assistance: Dependent - Upper Extremity Status Right Upper Extremity Comment: ROM WFL with exception to digits, MMT 4-/5, impaired fine motor coordination Left Upper Extremity Comment: ROM WFL, MMT grossly 4+/5 - Pain Comment: occasional neck discomfort , relieved with hot pack and position change - Insight/Carryover Insight/Carryover: Good - Patient/Family Education Comment: Family education to be completed 04/14/17 with pt's - Assessment/Plan Assessment: Pt continues to make improvements with all functional tasks, however requires continued OT services to address coordination, R side inattention, strength, endurance and balance to maximize independence with ADLs and functional transfers. - Goals Timeframe: 5 days Goals: MOD I with toileting. MOD I toilet txfers. S with UE dressing. S with LE dressing. S bathing. S with tub txfers - Provider Therapist: Cherelle Johnson License Number: [id number] Speech Therapy - Consult Information Patient on Program: Yes Medical Diagnosis: CVA Treatment Diagnosis: -mild dysarthria. -mild oropharyngeal dysphagia. -mild cognitive deficits - Assessment Speech/Articulation Impairment: Mild Dysphagia/Swallowing Impairment: Mild - Plan Assessment: Pt continues to make improvements with all functional tasks, however requires continued OT services to address coordination, R side inattention, strength, endurance and balance to maximize independence with ADLs and functional transfers. - Provider Therapist: Teresa Grace License Number: [id number] Recreational Therapy - Participation Participation: Participates in Individual and/or Group Sessions - Attendance Attendance: Daily - Activities Leisure Activities: Cards and Games - Socialization Level of Socialization: Initiates/interacts freely with care givers and peer - Diversional Time Diversional Time: reading the newspaper, socializing - Assessment Assessment/Plan: Pt continues to make improvements with all functional tasks, however requires continued OT services to address coordination, R side inattention, strength, endurance and balance to maximize independence with ADLs and functional transfers. - Provider Therapist: Ana Chong, [employer]INER #[id number] Nutrition - Current Diet Current Diet/ Supplement/ Feedings: Heart healthy advance bite size thin liquids ensure plus 1 per day - Appetite Percent Meal Consumed: 50-74% - Comments Comments: safety, fall precaution post cva care aspiration precaution - Assessment/Goals/Time Frame Assessment/Goals/Time Frame: constipation, safety - Provider Provider: Zabrina Head RD Case Management - Psychosocial Assessment Support Systems: Lives with Spouse Amarilis in [place] [phone]. Will temporarily stay with daughter in [place]. Son Parveen lives in [place] [phone] Psychological Interventions/Needs: Pt is alert and oriented x3, with short term recall deficits and dysphagia Discharge Concerns: Pt will likel require 24hr supervision Patient/Family Meeting: CM met with pt and pt's as well as rehab team Intervention/Goal/Outcome:: 1. Tentative d/c date scheduled for 04/15/17 2. GOAL : 24hr supervision. 3. DME: TBD 4. Home with skilled homecare -will temporarily stay with daughter and in [place] - Discharge Plan Discharge Plan: Home with significant other/family Home Services: Refer to [facility] - Provider Provider: PATEL Ruiz, FINISH INSPECTOR License Number: [id number] Rehabilitation Plan - Treatment Plan Treatment Plan: Physical Therapy, Occupational Therapy, Speech, Dietary, Patient /Family Education - Discharge Plan Estimated Date of Discharge: 04/15/17 Discharge to: Home (with daughter)
--- NOTE | 2017-04-14 13:33 | CP.PCM.PN ---
Subjective - Date & Time of Evaluation Date of Evaluation: 04/14/17 Time of Evaluation: 13:32 - Subjective Subjective: patient seen in room had a good result with fleets last night making great progress and excited to d/c home tomorrow family has had family training Objective - Vital Signs/Intake and Output Vital Signs (last 24 hours): Temp Pulse Resp BP Pulse Ox 97.0 F L 62 20 143/54 L 95 04/14/17 09:00 04/14/17 09:00 04/14/17 09:00 04/14/17 09:00 04/14/17 07:45 - Medications Medications: Current Medications Acetaminophen (Tylenol 325mg Tab) 650 mg PO Q4 PRN PRN Reason: pain,(4-10) Last Admin: 04/13/17 23:06 Dose: 650 mg Apixaban (Eliquis) 5 mg PO BID [facility] PRN Reason: Protocol Last Admin: 04/14/17 08:49 Dose: 5 mg Aspirin (Aspirin Chewable) 81 mg PO DAILY [facility] Last Admin: 04/14/17 08:50 Dose: 81 mg Atenolol (Tenormin) 50 mg PO DAILY [facility] Last Admin: 04/14/17 08:51 Dose: 50 mg Atorvastatin Calcium (Lipitor) 80 mg PO HS [facility] Last Admin: 04/13/17 21:23 Dose: 80 mg Calcium/Vitamin D (Oyster Shell Calcium/Vitamin D 500 Mg-200 Iu) 1 tab PO DAILY [facility] Last Admin: 04/14/17 08:50 Dose: 1 tab Docusate Sodium (Colace) 100 mg PO BID [facility] Last Admin: 04/14/17 08:49 Dose: 100 mg Finasteride (Proscar) 5 mg PO DAILY [facility] Last Admin: 04/14/17 08:50 Dose: 5 mg Home Med (Flecainide [Tambocor]) 100 mg PO Q12 [facility] Last Admin: 04/14/17 08:49 Dose: 100 mg Lisinopril (Zestril) 10 mg PO DAILY [facility] Last Admin: 04/14/17 08:51 Dose: 10 mg Magnesium Hydroxide (Milk Of Magnesia) 30 ml PO DAILY PRN PRN Reason: Constipation Last Admin: 04/13/17 17:10 Dose: 30 ml Multivitamins/Minerals (Therapeutic-M Tab) 1 tab PO DAILY [facility] Last Admin: 04/14/17 08:51 Dose: 1 tab Pantoprazole Sodium (Protonix Ec Tab) 40 mg PO DAILY [facility] Last Admin: 04/14/17 08:50 Dose: 40 mg Phenylephrine HCl (Preparation H Suppositories) 1 supp VA BID [facility] Last Admin: 04/14/17 08:50 Dose: 1 supp Tamsulosin HCl (Flomax) 0.8 mg PO HS [facility] Last Admin: 04/03/17 21:06 Dose: 0.8 mg - Labs Labs: 03/27/17 06:40 03/27/17 06:40
[2017-04-15 08:46] VITALS: BP 147/63; RESP 19; TEMP 97.8; O2SAT 98
[2017-04-15] MEDS: Multivitamin With Minerals Tab PO SCH (08:49)
[2017-04-15] MEDS: Calcium-Vit D 500 mg-200 Units Tab UD PO SCH (08:49)
[2017-04-15] MEDS: FLECAINIDE 100 MG PO SCH (08:50)
[2017-04-15] MEDS: Pantoprazole 40 mg EC Tab PO SCH (08:51)
[2017-04-15] MEDS: Phenylephrine 0.25 % Supp PR SCH (08:51)
[2017-04-15 08:53] VITALS: PULSE 64
--- NOTE | 2017-04-15 12:21 | CP.PCM.DIS ---
Provider - Provider Date of Admission: 03/26/17 18:45 Attending physician: Roverto Hunt MD Consults: Neuro consult physiatry consult pharmacy Time Spent in preparation of Discharge (in minutes): 10 Hospital Course - Lab Results Lab Results: Most Recent Lab Values WBC 7.3 K/uL (4.8-10.8) 03/27/17 06:40 RBC 4.57 Mil/uL (4.40-5.90) 03/27/17 06:40 Hgb 13.5 g/dL (12.0-18.0) 03/27/17 06:40 Hct 39.9 % (35.0-51.0) 03/27/17 06:40 MCV 87.4 fl (80.0-94.0) 03/27/17 06:40 MCH 29.5 pg (27.0-31.0) 03/27/17 06:40 MCHC 33.7 g/dL (33.0-37.0) 03/27/17 06:40 RDW 14.2 % (11.5-14.5) 03/27/17 06:40 Plt Count 209 K/uL (130-400) 03/27/17 06:40 MPV 8.1 fl (7.2-11.7) 03/27/17 06:40 Neut % (Auto) 78.3 % (50.0-75.0) H 03/27/17 06:40 Lymph % (Auto) 6.2 % (20.0-40.0) L 03/27/17 06:40 [place] % (Auto) 12.4 % (0.0-10.0) H 03/27/17 06:40 Eos % (Auto) 2.8 % (0.0-4.0) 03/27/17 06:40 Baso % (Auto) 0.3 % (0.0-2.0) 03/27/17 06:40 Neut # 5.7 K/uL (1.8-7.0) 03/27/17 06:40 Lymph # 0.5 K/uL (1.0-4.3) L 03/27/17 06:40 [place] # 0.9 K/uL (0.0-0.8) H 03/27/17 06:40 Eos # 0.2 K/uL (0.0-0.7) 03/27/17 06:40 Baso # 0.0 K/uL (0.0-0.2) 03/27/17 06:40 Neutrophils % (Manual) 80 % (42-75) H 03/27/17 06:40 Band Neutrophils % 1 % (0-2) 03/27/17 06:40 Lymphocytes % (Manual) 5 % (20-50) L 03/27/17 06:40 Monocytes % (Manual) 11 % (0-10) H 03/27/17 06:40 Eosinophils % (Manual) 3 % (0-7) 03/27/17 06:40 Platelet Estimate Normal (NORMAL) 03/27/17 06:40 Large Platelets Present 03/27/17 06:40 Giant Platelets Present 03/27/17 06:40 Anisocytosis (manual) Slight 03/27/17 06:40 Sodium 139 mmol/l (132-148) 03/27/17 06:40 Potassium 4.7 MMOL/L (3.6-5.0) 03/27/17 06:40 Chloride 103 mmol/L (98-107) 03/27/17 06:40 Carbon Dioxide 29 mmol/L (22-30) 03/27/17 06:40 Anion Gap 12 (10-20) 03/27/17 06:40 BUN 16 mg/dl (9-20) 03/27/17 06:40 Creatinine 0.9 mg/dl (0.8-1.5) 03/27/17 06:40 Est GFR ( Amer) > 60 03/27/17 06:40 Est GFR (Non-Af Amer) > 60 03/27/17 06:40 Random Glucose 103 mg/dL (75-110) 03/27/17 06:40 Calcium 8.7 mg/dL (8.4-10.2) 03/27/17 06:40 Total Bilirubin 1.1 mg/dl (0.2-1.3) 03/27/17 06:40 AST 26 U/L (17-59) 03/27/17 06:40 ALT 32 U/L (21-72) 03/27/17 06:40 Alkaline Phosphatase 52 U/L (38-126) 03/27/17 06:40 Total Protein 6.6 G/DL (6.3-8.2) 03/27/17 06:40 Albumin 3.3 g/dL (3.5-5.0) L 03/27/17 06:40 Globulin 3.2 gm/dL (2.2-3.9) 03/27/17 06:40 Albumin/Globulin Ratio 1.0 (1.0-2.1) 03/27/17 06:40 Urine Color Yellow (YELLOW) 04/01/17 10:25 Urine Clarity Slighty-cloudy (Clear) 04/01/17 10:25 Urine pH 6.0 (5.0-8.0) 04/01/17 10:25 Ur Specific [place] 1.021 (1.003-1.030) 04/01/17 10:25 Urine Protein Negative mg/dL (NEGATIVE) 04/01/17 10:25 Urine Glucose (UA) Neg mg/dL (Normal) 04/01/17 10:25 Urine Ketones Negative mg/dL (NEGATIVE) 04/01/17 10:25 Urine Blood Moderate (NEGATIVE) 04/01/17 10:25 Urine Nitrate Negative (NEGATIVE) 04/01/17 10:25 Urine Bilirubin Negative (NEGATIVE) 04/01/17 10:25 Urine Urobilinogen 0.2-1.0 mg/dL (0.2-1.0) 04/01/17 10:25 Ur Leukocyte Esterase Neg Shilpa/uL (Negative) 04/01/17 10:25 Urine RBC (Auto) 122 /hpf (0-3) H 04/01/17 10:25 Urine Microscopic WBC 5 /hpf (0-5) 04/01/17 10:25 Ur Squamous Epith Cells < 1 /hpf (0-5) 04/01/17 10:25 - Hospital Course Hospital Course: 87 y/o male with PMH Afib, HTN, Non Hodgkin Lymphoma, bilateral hearing impairment , LLE DVT was visiting from [place] to [place] where he suddenly fell down in the hotel room , developed slurred speech, RLE weakness and decreased sensation . Patient was admitted at an acute care hospital in [place] and was diagnosed with acute left MCA stroke and transferred to acute rehab for physical therapy since his daughter lives in [place]. He was admitted with right facial droop, right side weakness and some slurred speech . Patient participated well with Pt and today will be discharged home with family 1. Acute Left MCA stroke Physiatry consult with Dr. Carey appreciated participated well with PT/OT/ speech eval and treatment on Eliquis, Statin , ASA neurology input appreciated Patient twill need outpatient polysomnogram as an outpatient for possible BECKY 2. Atrial fibrillation, controlled Atenolol 50 mg po daily Flecainide 100 mg po q 12 hours Continue Eliquis 3. History LLE DVT on eliquis 4. HTN Continue Atenolol, Lisinopril 5. Degenerative disc disease of the cervical spine as seen on CT cervical spine pain controlled at this time 5. Bilateral hearing impairment stable 6. BPH on Proscar and Flomax monitor for orthostatic hypotension 7. DVt prophylaxis on Eliquis 8. GERD Protonix 40 mg po daily Discharge Exam - Head Exam Head Exam: ATRAUMATIC, NORMOCEPHALIC - Eye Exam Eye Exam: EOMI, PERRL Pupil Exam: NORMAL ACCOMODATION - ENT Exam ENT Exam: Mucous Membranes Moist, Normal Exam - Neck Exam Neck exam: Full Rom, Normal Inspection - Respiratory Exam Respiratory Exam: Clear to PA & Lateral, NORMAL BREATHING PATTERN. absent: Wheezes, Respiratory Distress - Cardiovascular Exam Cardiovascular Exam: Irregular Rhythm. absent: JVD - GI/Abdominal Exam GI & Abdominal Exam: Normal Bowel Sounds, Soft. absent: Distended, Guarding, Rebound, Tenderness - Rectal Exam Rectal Exam: Deferred - Extremities Exam Extremities exam: normal capillary refill, normal inspection, pedal pulses present - Back Exam Back exam: NORMAL INSPECTION - Neurological Exam Neurological exam: Alert, CN II-XII Intact, Oriented x3 Additional comments: slurred speech right side weakness right facial droop - Psychiatric Exam Psychiatric exam: Normal Affect - Skin Skin Exam: Dry, Normal Color, Warm Discharge Plan - Discharge Medications Prescriptions: Apixaban [Eliquis] 5 mg PO BID #60 tab Aspirin [Aspirin Chewable] 81 mg PO DAILY #30 chew Atenolol [Tenormin] 50 mg PO DAILY #30 tab Atorvastatin [Lipitor] 80 mg PO HS #30 tab Ca/D3/Mag#11/Zinc/[employer]ricating Shop Helper/Jsoe/Bor [Caltrate 600+D Plus Tablet] 1 each PO DAILY #30 tablet Finasteride [Proscar] 5 mg PO DAILY #30 tab Flecainide [Tambocor] 100 mg PO Q12 #60 tab Folic Acid 1 mg PO DAILY #30 tab Lisinopril [Zestril] 10 mg PO DAILY #30 tab Multivitamin [Daily Keenan] 1 tab PO DAILY #30 tablet Tamsulosin [Flomax] 0.8 mg PO HS #30 cap - Follow Up Plan Condition: GOOD Disposition: HOME/ ROUTINE Patient education suggested?: Yes Instructions: Atenolol (By mouth), Lisinopril (By mouth), Aspirin (By mouth), Finasteride (By mouth), Folic Acid (By mouth), Multivitamins, Adult Formula (By mouth), Flecainide (By mouth), Atorvastatin (By mouth), Tamsulosin (By mouth), Calcium/Vitamin D Supplement (By mouth), Apixaban (By mouth), Ischemic Stroke ( DC) Additional Instructions: Follow up with PMD
== END 2017-04-15 13:07 | disposition home health service (06) | DRG 57 ==
PROVIDERS: ADMIT Hospitalist; ATTEND Hospitalist
PROC: F06Z6ZZ Communicative/Cognitive Integration Skills Treatment (ICD-10-PCS; principal; 2017-03-26)
PROC: F08Z1FZ Dressing Techniques Treatment using Assistive, Adaptive, Supportive or Protective Equipment (ICD-10-PCS; 2017-03-26)
PROC: F08Z2FZ Grooming/Personal Hygiene Treatment using Assistive, Adaptive, Supportive or Protective Equipment (ICD-10-PCS; 2017-03-26)
PROC: F07Z9FZ Gait Training/Functional Ambulation Treatment using Assistive, Adaptive, Supportive or Protective Equipment (ICD-10-PCS; 2017-03-26)
PROC: F07L6FZ Therapeutic Exercise Treatment of Musculoskeletal System - Lower Back / Lower Extremity using Assistive, Adaptive, Supportive or Protective Equipment (ICD-10-PCS; 2017-03-26)
DX: I69.351 Hemiplegia and hemiparesis following cerebral infarction affecting right dominant side (principal); H53.461 Homonymous bilateral field defects, right side; I69.328 Other speech and language deficits following cerebral infarction; I48.91 Unspecified atrial fibrillation; I69.398 Other sequelae of cerebral infarction; I69.392 Facial weakness following cerebral infarction; N40.0 Benign prostatic hyperplasia without lower urinary tract symptoms; K21.9 Gastro-esophageal reflux disease without esophagitis; M50.30 Other cervical disc degeneration, unspecified cervical region; K59.00 Constipation, unspecified; Z86.718 Personal history of other venous thrombosis and embolism; I10 Essential (primary) hypertension; H91.93 Unspecified hearing loss, bilateral; Z91.040 Latex allergy status; Z85.71 Personal history of Hodgkin lymphoma